=== PATIENT | female | born 1980 | race Caucasian/White ===

== ENCOUNTER 2017-08-08 23:04 | Emergency (ER) | payer OTHER, SELFPAY ==
[2017-08-08 23:04] VITALS: BP 140/77; PULSE 93; RESP 16; TEMP 36.6; O2SAT 99; BMI 30.9
--- NOTE | 2017-08-08 23:56 | ED.DCSUM_ITS ---
- ER Visit Summary Date of Service: 08/08/17 Chief Complaint: Left lower leg pain History of Present Illness: The patient is a 37 F nontraumatic left lower leg pain progress over the past week. No significant swelling. No chest pains or shortness of breath. No history of PE or DVT. Denies any recent long trips or plane rides. States she does ride in a car for 2 hours. No history of clotting disorders. No tobacco history. However she is on estrogen therapy for control. Saw the urgent care for 30 today, sent here for rule out DVT. Been using ibuprofen. Physical Examination: General: Alert and oriented ?3, no acute distress HEENT: Normocephalic, atraumatic. Moist mucosa membranes Neck: supple, nontender. Cardiovascular: Regular rate and rhythm, no murmurs Respiratory: Normal breath sounds, symmetric, no distress Abdomen: Soft, nontender, nondistended Extremities: Left lower extremity: Mild calf pain. No deformities. No gross asymmetry noted of the extremities. There is 1+ pedal pulse in the left, 2+ pedal pulse on the right. Warm distal extremities. No cyanosis. Neuro: no focal neurological deficits. Test Results: [] Emergency Department Course and Treatment: Patient calf pain, she is on estrogen therapy. No chest pains or shortness of breath. Currently at this time there is no ultrasound available for rule out DVT. With her risk factor, discussed Lovenox treatment return in the morning for official ultrasound. Patient understands and agrees with plan. 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 She will like the PCP in the area, she is given on-call with Dr. Lowell Dickson. Treatment Plan: [] Disposition: Discharge Impression: Left lower extremity pain rule out DVT This note was generated with [employer] dictation software. It may contain incorrect words, spelling, and punctuation that were not noted in review of the chart prior to signing ED Disposition - Plan for ED Patient: Disposition: Home or Assisted Living Chief Complaint: Lower Extremity Injury Diagnosis: Pain of left lower extremity Referrals: [facility] Doctor,Out of [Primary Care Provider] - Lowell Dickson DO [STAFF PHYSICIAN] - 3-5 Days Additional Instructions: Left lower extremity pain. Status post Lovenox. Call or return in the morning for an official ultrasound to rule out deep vein thrombosis of your leg.
[2017-08-08] MEDS: Enoxaparin 100 MG/ML Syringe SC (23:57)
--- OUTSIDE RECORDS SUMMARY | 2017-08-08 23:58 | XMS RPT_ITS | Clinical Summary ---
:1980 Author Organization [facility] Address [address] [place] [address] Phone Care Team Providers Name Role Phone Nuvia Davis LPN Unavailable Conditions or Problems Problem Name Problem Onset Status Entry Provider Comment Standard Annotate Code Date Date Description Sinusitis [id number] Active Nuvia Stack Sinusitis (SNOMED / Susan ANAYAN CT) Strain of S66.911A Active Augusto Quinteros Strain of unspecified (ICD-10-CM / [place] unspecified muscle, fascia ) muscle, and tendon at fascia and wrist and hand tendon at level, right wrist and hand, initial hand level, encounter right hand, initial encounter Strain of S56.911A Active Augusto M Strain of unspecified (ICD-10-CM / [place] unspecified muscles, ) muscles, fascia and fascia and tendons at tendons at forearm level, forearm right arm, level, right initial arm, initial encounter encounter Contusion of S60.211A Active Augusto Quinteros Contusion of right wrist, (ICD-10-CM / [place] right wrist, initial ) initial encounter encounter Contusion of S50.01xA Active Augusto M Contusion of right elbow, (ICD-10-CM / [place] right elbow, initial ) initial encounter encounter Contusion of S60.221A Active Augusto M Contusion of right hand, (ICD-10-CM / [place] right hand, initial ) initial encounter encounter Medications Medication Instructions Start Stop Generic Name NDC Provider Date Date AMOXICILLIN-POT Take 1 tab every / AMOXICILLIN-PO [id number] Vivek D CLAVULANATE 12 hours 5 25 T CLAVULANATE Ty ADEN 875-125 MG TABS Medications Administered No information available. Allergies, Adverse Reactions, Alerts Observed no known allergies at Results Date Name Value Unit Range Flag Description Office Visit: UC: sinus/ear infection MEDS REVIEW Done Documentation of current medications (procedure) FALLRSKASSES No Fall risk assessment ORALTOBACUSE Never Tobacco smoking status NHIS SMOK STATUS Never smoker Tobacco use [facility] Plan of Care Type Date Detail Pending order X-Ray, Hand Pending order X-Ray, Wrist Pending order X-Ray, Elbow Pending order X-Ray, Hand Pending order X-Ray, Elbow Pending order X-Ray, Elbow Patient education SINUSITIS Procedures No information available. Vital Signs Date Name Value Unit Description BMI (Body Mass Index) 29.18 kg/m2 Body Mass Index [Ratio] Body Temperature 98.3 [degF] temperature E&M BP Diastolic 78 mm[Hg] blood pressure, diastolic - 8462-4 BP Systolic 124 mm[Hg] blood pressure, systolic - 8480-6 Heart Rate 106 /min pulse rate E&M - 8867-4 Height 64 [in_us] height E&M - 8302-2 Respiratory Rate 14 /min respiratory rate E&M - 9279-1 Weight Measured 170 [lb_av] weight E&M - 3141-9
--- OUTSIDE RECORDS SUMMARY | 2017-08-08 23:58 | XMS RPT_ITS ---
:1980 Author Organization OHIP Care Team Providers Name Role Phone [facility] Attending Unavailable Augusto Monsivais Attending Unavailable DOCTOR, OUT OF TOWN Referring Unavailable Thomas House Attending Unavailable PROBLEMS PROBLEMS DATE TYPE CONDITION / CODE ATTENDING STATUS SOURCE 12/06/2016 Unknown ENCOUNTER FOR [facility] Active [place] SCREENING FOR [facility] NEOPLASM OF Repository CERVIX / Z12.4(ICD-10) PROCEDURES PROCEDURES No Procedure Records FoundRESULTS RESULTS EMERGENCY DEPARTMENT Observed: 08/08/2017 Status: F Source: [place] SUMMARY 11:56 PM [facility] REPOSITORY [facility] [id number] [place], [place] [address]Nvdxdcayz Department Xpsammw42/21/18 2352MR#: [id number] Acct: [id number]: LOLIS RATLIFF Rep #: [id number]: 1980 37 From: Thomas House DOPCP: OUT OF TOWN DOCTOR Status: REG ER- ER Visit SummaryDate of Service: 08/08/17Chief Complaint: Left lower leg painHistory of Present Illness: The patient is a 37 F nontraumatic left lower leg pain progressover the past week. No significant swelling. No chest pains or shortness of breath. Nohistory of PE or DVT. Denies any recent long trips or plane rides. States she [place] in [place] 2 [place]. No history of clotting disorders. No tobacco history. However she is onestrogen therapy for control. Saw the urgent care for 30 today, sent here for rule outDVT. Been using ibuprofen.Physical Examination: General: Alert and oriented 3, no acute distressHEENT: Normocephalic, atraumatic. Moist mucosa membranesNeck: supple, nontender.Cardiovascular: Regular rate and rhythm, no murmursRespiratory: Normal breath sounds, symmetric, no distressAbdomen: Soft, nontender, nondistendedExtremities: Left lower extremity: Mild calf pain. No deformities. No gross asymmetry notedof the extremities. There is 1+ pedal pulse in the left, 2+ pedal pulse on the right. Warmdistal extremities. No cyanosis.Neuro: no focal neurological deficits.Test Results: []Emergency Department Course and Treatment: Patient calf pain, she is on estrogen therapy. Nochest pains or shortness of breath. Currently at this time there is no ultrasound availablefor rule out DVT. With her risk factor, discussed Lovenox treatment return in the morning forofficial ultrasound. Patient understands and agrees with plan. 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 She will like the PCP in the area, she is givenon-call with Dr. Lowell Dickson.Treatment Plan: []Disposition: DischargeImpression: Left lower extremity pain rule out DVTThis note was generated with [employer] dictation software. It may contain incorrect words,spelling, and punctuation that were not noted in review of the chart prior to signingED Disposition- Plan for ED Patient:Disposition: Home or Assisted LivingChief Complaint: Lower Extremity InjuryDiagnosis:Pain of left lower extremityReferrals:[facility] Doctor,Out of [Primary Care Provider] -Lowell Dickson DO [STAFF PHYSICIAN] - 3-5 DaysAdditional Instructions:Left lower extremity pain. Status post Lovenox. Call or return in the morning for an officialultrasound to rule out deep vein thrombosis of your leg.What to do if you have ProblemsFor any increased pain, shortness of breath, bleeding , nausea or vomiting, chest pain, or anyunexpected problems, contact your Primary Care Provider. Call [facility] ([phone])or report to the closest Emergency Room.Call 911 if necessary.08/08/17 2356 <Electronically signed by Thomas Salazar>Date Thomas House DOCosigner Signature (If Indicated): Date ___CC: OUT OF TOWN DOCTOR URGENT CARE VISIT Observed: 08/08/2017 Status: F Source: [place] REPORT 5:09 PM [facility] REPOSITORY Now [address] [id number] VISITDate of Service: 08/08/17MR#: [id number] Acct: [id number]: LOLIS RATLIFF Rep #: [id number]: 1980 Provider: Augusto Thornton/Sex: 37/F [facility]: SignedIntakeVital Signs08/08/17 Height 5 ft 5 in08/08/17 Weight: 180 lb08/08/17 Body Mass Index (BMI) 29.906 Blood Pressure 126/84IntakeVisit Reasons: Swollen Left FootChief Complaint: Left lower extremity swellingInterpreter Required: NoIs patient in pain?: NoAllergiesNo Known Allergies Allergy (Unverified 08/08/17 16:30)MedicationsNK [NK] 08/08/17 [History Confirmed 08/08/17]PFSHMedical History history of ankle surgery (Acute)history of wrist surgery (Acute)Social HistorySmoking Status: Never smokeralcohol intake: neverHPIHPIChief Complaint: Left lower extremity swellingDetails: LOLIS RATLIFF, is a 37 F who presents to the office today for initial evaluationapproximately 2-3 month history of waxing and waning swelling of the left lower extremity.Patient notes having had previous surgery performed including debridement of the joints in herleft ankle several years ago. Patient has noted over the course of the last several monthswhen her left lower extremity is dependent or she performs prolonged ambulation she developsdependent swelling in her left lower extremity. She notes resting elevating lower extremityseems to assist somewhat, noting she has trace to absent swelling at this time. Patient isconcerned because of the waxing and waning of the symptoms. She notes no history ofhypercoagulable states or DVT/PE. She notes no other associated symptoms and no otheralleviating or aggravating factors.ROSConstConstitutional: No excessive sweating, abnormal sleep pattern, chills, fever(s), night sweatsor body acheEyesEyes: No change in visionENTENT: No abnormal hearing, ear pain, ear discharge, ear pressure or hearing lossRespRespiratory: No cough, chest congestion or shortness of breathCardioCardiology: No excessive sweating, chest pain at rest, chest pain with exertion, shortness ofbreath, dyspnea on exertion, irregular heart rhythm, generalized swelling, leg pain withexertion, lightheadedness or orthopneaGastroGI: No abdominal pain, change in stool character or change in bowel habitsMuscMusculoskeletal: No joint pain, back pain or limited range of motionSkinSkin: No change in hair, sores, rash or woundsNeuroNeurology: No abnormal hearing, abnormal speech or abnormal movementsPsychPsychiatric: No abnormal sleep patternEndoEndocrine: No excessive sweating, change in body appearance, cold intolerance or heatintoleranceAller/ImmAllergy/Immunologic: No food intoleranceHema/LympHematologic/Lymphatic: No easy bruisingExamConstGeneral: cooperative, healthy appearing, no acute distress, comfortableNutritional Appearance: average body habitus, obeseOrientation: alert, awake, oriented x4SUKRMLbvi: normal to inspectionEars: hearing grossly normal bilaterallyNose: external nose normalEyesGeneral: appearance normal, both eyes and all related structuresNeckNeck: normal visual inspection, full ROM, no lymphadenopathy, no meningeal signs, suppleNeck mass: NoThyroid: thyroid normalLymphatic: no lymphadenopathy notedChestChest palpation AND inspection: normal inspection of the chestRespEffort AND Inspection: normal respiratory effort, able to speak in complete sentences , symmetricchest movementAuscultation: Bilateral: Clear to AuscultationCardioPalpation: normal PMIRate: regular rateRhythm: regular rhythmHeart Sounds: S1 normal, S2 normal, no gallops, no murmurs, no rubsPulses: dorsalis pedis pulses present, posterior tibial pulses present, other (Negative Homansbilateral extremities, no BLE edema appreciated)GIInspection: normal to inspectionPalpation: soft, no hepatosplenomegalySkinGeneral: no rashes or lesions notedNeuroGeneral: alert, awake, oriented x3, gait normalCognition: normal cognitionSpeech: speech normalGait: normal gaitMotor: muscle tone normal throughoutSensory Exam: no sensory deficits notedExtremGeneral: normal to inspection, full ROM, normal capillary refill, no joint enlargement, nopedal edema, normal gait, calf tenderness (trace) on the left, no calf tenderness (right)PsychAppearance: grossly normalMental Status: mental status grossly normalMood: congruent moodAffect: normal affectSpeech and Movement: speech and movement normalAttitude: cooperativeThought Process: normalThought Content: normalJudgment: judgment goodAssessment AND PlanProblems1. Edema of left lower extremity R60.0Plan- by historyContinue rest and elevation of left lower extremity as instructed today.Follow-up with PCP first available appointment for further evaluation, or report to ED soonershould recurring left lower extremity discomfort in her swelling occurred.Patient states acknowledging understanding all the above.CodingLevel of Care CodeOff vis,new,level 3DiagnosesEdema of left lower extremity R60.006 1709 <Electronically signed by Augusto ADEN>Date Augusto Monsivais PACosigner Signature: Date (if applicable)CC: PROGRESS Observed: 02/13/2017 Status: COMPLETED Source: [place] 7:51 PM [facility] RE[facility] HNO ID: [id number]: Nicole (Ruling Machine Set Up Operator) Nunu: (none)Author Type: Nurse PractitionerType: Progress NotesFiled: 02/13/2017 9: 32 PMNote Text:HPIHPI Lolis Ratliff is a 36 year old female who presents today for CC ofcough, sinus pressure, ear pressure. This started 1 month ago. Has triedotc medications without relief. Symptoms are worsened by nothing specific. Risk factors sick exposures at home. Denies possibility of being. nonsmoker.Review of SystemsConstitutional: Positive for chills. Negative for fever and weight loss.HENT: Positive for congestion and sore throat. Negative for ear pain andnosebleeds.Respiratory: Positive for cough. Negative for shortness of breath andwheezing.Musculoskeletal: Negative for neck pain.PAST MEDICAL HISTORYDiagnosis Date- Seasonal allergiesPAST SURGICAL HISTORYProcedure Laterality Date- ANKLE SURGERY HX Left- CHOLECYSTECTOMY- PAST SURGICAL HISTORY OF Bilateral DeQervains releaseALLERGIES Review of patient's allergies indicates no known allergies.MEDICATIONSEthinyl Estradiol-Norelgestrom 150-35 mcg/24 hr Apply 1 Patch as directedonce each week.No family history on file.Social HistorySubstance Use Topics- Smoking status: Never Smoker- Smokeless tobacco: Never Used- Alcohol use Not on fileBlood pressure 120/82, pulse 60, temperature 37.7 ?C (99.9 ?F),temperature source Tympanic, weight 80.6 kg (177 lb 9.6 oz), SpO2 98 %.Physical ExamConstitutional : She is oriented to person, place, and time andwell-developed, well-nourished, and in no distress. Non-toxic appearance.She does not have a sickly appearance. No distress.HENT:Head: Normocephalic and atraumatic.Right Ear: Hearing, external ear and ear canal normal. Tympanic membraneis bulging. Tympanic membrane is not erythematous.Left Ear: Hearing, tympanic membrane, external ear and ear canal normal.Nose: Right sinus exhibits frontal sinus tenderness. Left sinus exhibitsfrontal sinus tenderness.Mouth/Throat: Uvula is midline and mucous membranes are normal. Posteriororopharyngeal erythema present. No oropharyngeal exudate, posteriororopharyngeal edema or tonsillar abscesses.Eyes: Conjunctivae, EOM and lids are normal. Pupils are equal, round, andreactive to light. Lids are everted and swept, no foreign bodies found.Right eye exhibits no discharge. Left eye exhibits no discharge. Noscleral icterus.Neck: Trachea normal and normal range of motion. Neck supple.Cardiovascular: Normal rate, regular rhythm and normal heart sounds.Pulmonary/Chest: Effort normal and breath sounds normal.Lymphadenopathy : She has no cervical adenopathy.Neurological: She is alert and oriented to person, place, and time.Skin: No rash noted. She is not diaphoretic.ASSESSMENT/PLAN:1. Sinobronchitis - ICD9: 473.9, 490, ICD10: J32.9, J40- Will begin treatment with Augmentin 875 mg PO BID for 10 days- Supportive care with plenty of fluids, rest, and analgesia prn.- Follow up in one week if symptoms persist or worsen.- AMOXICILLIN 875 MG-POTASSIUM CLAVULANATE 125 MG TABLET- PREDNISONE 20 MG TABLETPrescription instructions reviewed with patient as applicable. Patientadvised if symptoms do not improve or if symptoms worsen sooner, tocontact the office for further evaluation by their primary care physician. Potential red flag symptoms discussed with the patient. Reviewedappropriate action plan to take if red flag symptoms occur. Patientagreeable to treatment plan.Nicole Valle CNP CNOV Observed: 02/13/2017 Status: COMPLETED Source: [place] 7:[address] [facility] REPOSITORY Office Visit (WSTR) ---------LOLIS RATLIFF ([id number]) 1980 FDate Time Provider Rtlyacccay50/27/17 7:30 PM NICOLE VALLE (ALEJANDRA) UCWSTR During your visit today, we recorded the following information about you: Temperature Pulse Blood pressure Weight 99.9 degrees 60/minute 120/82 80.6 kgNicole ALEJANDRA Valle 02/13/2017 9:32 PM AddendumHPIHPI Lolis Ratliff is a 36 year old female who presents today for CC of cough,sinus pressure, ear pressure. This started 1 month ago. Has tried otcmedications without relief. Symptoms are worsened by nothing specific. Riskfactors sick exposures at home. Denies possibility of being .nonsmoker.Review of SystemsConstitutional: Positive for chills. Negative for fever and weight loss.HENT: Positive for congestion and sore throat. Negative for ear pain andnosebleeds.Respiratory: Positive for cough. Negative for shortness of breath and wheezing.Musculoskeletal: Negative for neck pain.PAST MEDICAL HISTORYDiagnosis Date- Seasonal allergiesPAST SURGICAL HISTORYProcedure Laterality Date- ANKLE SURGERY HX Left - CHOLECYSTECTOMY- PAST SURGICAL HISTORY OF Bilateral DeQervains releaseALLERGIES Review of patient's allergies indicates no known allergies.MEDICATIONSEthinyl Estradiol-Norelgestrom 150-35 mcg/24 hr Apply 1 Patch as directed onceeach week.No family history on file.Social HistorySubstance Use Topics- Smoking status: Never Smoker- Smokeless tobacco: Never Used- Alcohol use Not on fileBlood pressure 120/82, pulse 60, temperature 37.7 ?C (99.9 ?F), temperaturesource Tympanic, weight 80.6 kg (177 lb 9.6 oz), SpO2 98 %.Physical ExamConstitutional: She is oriented to person, place, and time and well-developed,well-nourished, and in no distress. Non-toxic appearance. She does not have asickly appearance. No distress.HENT:Head: Normocephalic and atraumatic.Right Ear: Hearing, external ear and ear canal normal. Tympanic membrane isbulging. Tympanic membrane is not erythematous.Left Ear: Hearing, tympanic membrane, external ear and ear canal normal.Nose: Right sinus exhibits frontal sinus tenderness. Left sinus exhibitsfrontal sinus tenderness.Mouth/Throat: Uvula is midline and mucous membranes are normal. Posteriororopharyngeal erythema present. No oropharyngeal exudate, posteriororopharyngeal edema or tonsillar abscesses.Eyes: Conjunctivae, EOM and lids are normal. Pupils are equal, round, andreactive to light. Lids are everted and swept, no foreign bodies found. Righteye exhibits no discharge. Left eye exhibits no discharge. No scleral icterus.Neck: Trachea normal and normal range of motion. Neck supple.Cardiovascular: Normal rate, regular rhythm and normal heart sounds.Pulmonary/Chest: Effort normal and breath sounds normal.Lymphadenopathy: She has no cervical adenopathy.Neurological: She is alert and oriented to person, place, and time.Skin: No rash noted. She is not diaphoretic.ASSESSMENT/PLAN:1. Sinobronchitis - ICD9: 473.9, 490, ICD10: J32.9, J40- Will begin treatment with Augmentin 875 mg PO BID for 10 days- Supportive care with plenty of fluids, rest, and analgesia prn.- Follow up in one week if symptoms persist or worsen. - AMOXICILLIN 875 MG-POTASSIUM CLAVULANATE 125 MG TABLET- PREDNISONE 20 MG TABLETPrescription instructions reviewed with patient as applicable. Patient advisedif symptoms do not improve or if symptoms worsen sooner, to contact the officefor further evaluation by their primary care physician. Potential red flagsymptoms discussed with the patient. Reviewed appropriate action plan to takeif red flag symptoms occur. Patient agreeable to treatment plan.Jareth Ortiz CNP 02/13/2017 8:15 PM SignedACUTE BRONCHITIS:You have acute bronchitis. This means the airway passages in your lungs areinflamed. Bronchitis may be caused by viruses or bacteria. Inhaling cigarettesmoke will always make it worse. Exposure to irritating chemicals or secondhand smoke as well as allergies can contribute to bronchitis. Repeat episodesof bronchitis may cause lifelong lung problems.Acute bronchitis is usually treated with rest, fluids, cough medicine, andpossibly antibiotics or inhaled medicine to open up the small airways. It isvery important that you avoid smoke and drink increased amounts of fluids. Acool air vaporizer can help thin bronchial secretions. This makes it easier tocough and clear your chest. If you are a cigarette smoker, consider usingnicotine gum or skin patches to help you withdraw.Recovery from bronchitis is often slow, but you should start feeling betterafter 2-3 days of treatment. Please call your doctor or return here if youhave any of the following symptoms: - Increased fever, chills, or chest pain. - Severe shortness of breath or bloody sputum. - Do not improve after 3 days of proper treatment.Referring Provider: SELF [200]Allergies As of Date: 02/13/2017(No Known Allergies)Date Reviewed: 2016Reviewed by: Nicole ([facility]) - Fully AssessedReason for Visit: cough, congestion, sore throat,bilateral ear pain chills [Other] Cmt: has had URI sympto- ms for about 1 month and last few days feels worsePrimary Visit Diagnosis:Sinobronchitis [J32.9, J40]Order(s):amoxicillin- clavulanic acid (AUGMENTIN) 875-125 mg per tabletTake 1 tablet by mouth twice daily for 10 days.Disp: 20 tabletRfl: 0 predniSONE (DELTASONE) 20 mg tabletTake 2 tablets by mouth once daily for 5 days.Disp: 10 tabletRfl: 0Prescriptions as of 02/13/2017 Sig: NORELGESTROMIN 150 MCG-E.ESTR* Apply 1 Patch as directed onc* AMOXICILLIN 875 MG-POTASSIUM * Take 1 tablet by mouth twice * PREDNISONE 20 MG TABLET Take 2 tablets by mouth once *Problem List As Of Date: 02/13/2017(None) Other instructions from your clinician: ACUTE BRONCHITIS : You have acute bronchitis. This means the airway passages in your lungs are inflamed. Bronchitis may be caused by viruses or bacteria. Inhaling cigarette smoke will always make it worse. Exposure to irritating chemicals or second hand smoke as well as allergies can contribute to bronchitis. Repeat episodes of bronchitis may cause lifelong lung problems. Acute bronchitis is usually treated with rest, fluids, cough medicine, and possibly antibiotics or inhaled medicine to open up the small airways. It is very important that you avoid smoke and drink increased amounts of fluids. A cool air vaporizer can help thin bronchial secretions. This makes it easier to cough and clear your chest. If you are a cigarette smoker, consider using nicotine gum or skin patches to help you withdraw. Recovery from bronchitis is often slow, but you should start feeling better after 2-3 days of treatment. Please call your doctor or return here if you have any of the following symptoms: - Increased fever, chills, or chest pain. - Severe shortness of breath or bloody sputum. - Do not improve after 3 days of proper treatment.Prescriptions ordered this encounter Disp Refills Start End AMOXICILLIN 875 MG-POTASSIUM CLAVULA* 20 t* 0 02/13/2017 02/23/2017 Route: ORAL Sig: Take 1 tablet by mouth twice daily for 10 days. PREDNISONE 20 MG TABLET 10 t* 0 02/13/2017 02/18/2017 Route: ORAL Sig: Take 2 tablets by mouth once daily for 5 days. 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 of containers..01 ThinPrep Vial TYPE CODE TESTS RESULT OUT OF RANGE REFERENCE UNITS LAB L7400.0800 Normal . DIAGN Comment Result Comment: NEGATIVE FOR INTRAEPITHELIAL LESION AND MALIGNANCY.CELLULAR CHANGES ASSOCIATED WITH INFLAMMATION ARE PRESENT. LAB L7400.0900 Normal . ADEQ Comment Result Comment: Satisfactory for evaluation. Endocervical and/or squamous metaplasticcells (endocervical component) are present. LAB L7400.1400 Normal . PERFORM Comment Result Comment: Frances Khalil, [employer]aked Goods Stock Clerk ( ASCP) LAB L7400.2575 Normal . TEST Comment METHOD Result Comment: This liquid based ThinPrep(R) pap test was screened withthe use of an image guided system. LAB L7400.2600 Normal . COMM . LAB L7400.2700 Normal . PAPSMR Comment Result Comment: The Pap smear is a screening test designed to aid in thedetection of premalignant and malignant conditions of theuterine cervix. It is not a diagnostic procedure andshould not be used as the sole means of detecting cervicalcancer. Both false-positive and false-negative reports dooccur. LAB L7400.2800 Normal . HPV Comment RFLX Result Comment: The HPV DNA reflex criteria were not met with this specimenresult therefore, no HPV testing was performed.Performed at: [address] [id number] Director: Nichol Patel MD, Phone: [phone] Performed By: #### L7400.0350 ####[facility] (refer to report for specific site)refer to report for address and phone number ALLERGIES ALLERGIES DATE TYPE / CODE NAME / CODE REACTION SEVERITY SOURCE 08/08/2017 Drug No Known Unknown [facility] Allergy/416 Allergies/H51666 Hospital 478561(SNOM 0388(RXNORM) Repository ED CT) Drug NO KNOWN [facility] Class/43824 ALLERGIES Main [place] 1003(SNOMED Repository CT) ENCOUNTERS ENCOUNTERS ADMIT/DISCHARGE ACCOUNT ADMITTING ENCOUNTER LOCATION SOURCE NUMBER CLASS 08/08/2017 [id number] Emergency [facility] ing:ED Repository 08/08/2017/08/09/19 [id number] [facility] [address] [facility] Repository 02/13/2017/02/14/20 [id number] Ambulatory [address] Repository 11/30/2016 [id number] Ambulatory [facility] ing:LABSPEC Repository PAYERS PAYERS ENCOUNTER GUARANTOR PAYER SUBSCRIBER SOURCE 08/08/2017 LOLIS Davis Primary LOLIS Davis [place] [id number] Insurance:HEALTH PLAN CALDRONEDOB: [facility] [id number] Number: Repository [id number]: [phone] [id number] [phone] (HP) Date: [place], [place] [address]DA: 08/08/2017 [facility]:SELF PAY [facility] Number: Effective Repository Date:2017-08-08 08/08/2017 LOLIS Davis Primary LOLIS Davis [place] [id number] Insurance:HEALTH PLAN CALDRONEDOB: [facility] [id number] Mercy HospitalPolicy Number: Repository [id number]: 330 [id number] [phone] () Date: NISHA GARCIA [address]RU: 08/08/2017 Secondary NOT GIVENUNK [place] Insurance:SELF PAY [facility] Number: Effective Repository Date:2017-08-08 11/30/2016 LOLIS [id number] Primary LOLIS Ryan ROBBINS Insurance:HEALTH PLAN CALDRONEDOB: [facility] [id number] 316[address]Zkl: 330 VALLEYPolicy Number: Repository [phone] () [id number] Date:[address] [place] [id number]:
== END 2017-08-09 00:05 | disposition home or self-care (01) ==
PROVIDERS: Emergency Provider Emergency Medicine
DX: M79.605 Pain in left leg (principal); Z79.890 Hormone replacement therapy
CPT/HCPCS: 99282

== ENCOUNTER → 2017-08-09 11:05 | Outpatient (CLI) | payer OTHER, SELFPAY ==
--- NOTE | 2017-08-09 11:08 | VDLE_ITS ---
Reason For Study: LEG PAIN AND SWELLING RIGHT LEFT CFV is compressible, spontaneous, phasic, GSV is normal. competent and demonstrates normal CFV is compressible, spontaneous, phasic, augmentation. competent, and demonstrates normal Procedure augmentation. Exam performed in department. FV is compressible, spontaneous, phasic, competent and demonstrates normal augmentation. POP V is compressible, spontaneous, phasic, competent and demonstrates normal augmentation. T/P Trunk is compressible. PTV is compressible. LT PerV is compressible. Interpretation Summary Deep veins of the left lower extremity are patent and compressible segmentally. There is no evidence of left lower extremity deep vein thrombosis. Valvular competence appears intact within the proximal deep venous system on the left . The left greater saphenous vein appears patent and compressible segmentally. Ordering Physician: Thomas House Referring Physician: Lowell Dickson Performed By: Lindsay Mascorro RVT
--- OUTSIDE RECORDS SUMMARY | 2017-08-09 13:40 | XMS RPT_ITS ---
:1980 Author Organization OHIP Care Team Providers Name Role Phone [facility] Attending Unavailable Augusto Monsivais Attending Unavailable DOCTOR, OUT OF TOWN Referring Unavailable Thomas House Attending Unavailable FRANCES KATZ Primary Care Unavailable Thomas House Attending Unavailable Thomas House Referring Unavailable FRANCES KATZ Primary Care Unavailable PROBLEMS PROBLEMS DATE TYPE CONDITION / CODE ATTENDING STATUS SOURCE 12/06/2016 Unknown ENCOUNTER FOR [facility] Active Emily [facility] NEOPLASM OF Repository CERVIX / Z12.4(ICD-10) PROCEDURES PROCEDURES No Procedure Records FoundRESULTS RESULTS EMERGENCY DEPARTMENT Observed: 08/08/2017 Status: F Source: EMILY SUMMARY 11:56 PM [facility] [id number] [place] [address]Fbkxgrnuk Department Nrihhri62/21/18 2352#: [id number] Acct: [id number]: LOLIS RATLIFF Rep #: [id number]: 1980 37 From: Thomas SinghCP: OUT OF TOWN DOCTOR Status: REG ER- [...] rule out DVTThis note was generated with CritiSenseation software. It may contain incorrect words,spelling, and punctuation that were not noted in review of the chart prior to signingED Disposition- Plan for ED Patient:Disposition: Home or Assisted LivingChief Complaint: Lower Extremity InjuryDiagnosis:Pain of left lower extremityReferrals:[facility] Doctor,Out of [Primary Care Provider] -Lowell Dickson [...] your Primary Care Provider. Call [facility] ([phone])or report to the closest Emergency Room.Call 911 if necessary.08/08/17 2356 <Electronically signed by Thomas Salazar>Date Thomas Neilosigner Signature (If Indicated): Date ___CC: OUT OF TOWN DOCTOR URGENT CARE VISIT Observed: 08/08/2017 Status: F Source: [place]ILY REPORT 5:09 PM [facility] REPOSITORY Now [address] [phone] VISITDate of Service: 08/08/17MR#: [id number] Acct: [id number]: LOLIS RATLIFF Rep #: [id number]: 1980 Provider: Augusto Thornton/Sex: 37/F Location: [facility].NOWStatus: SignedIntakeVital Signs08/08/17 Height 5 ft 5 in08/08/17 [...] average body habitus, obeseOrientation: alert, awake, oriented [id number]: normal to inspectionEars: hearing grossly normal bilaterallyNose: [...] extremity R60.006 1709 <Electronically signed by Augusto Monsivais PA>Date Augusto Monsivais PACosigner Signature: Date (if applicable)CC: PROGRESS Observed: 02/13/2017 Status: COMPLETED Source: [place] 7:51 PM [facility] REPOSITORY HNO ID: [id number]: Nicole ([facility]) Nunu: (none)Author Type: Nurse PractitionerType: Progress NotesFiled: [...] CNP CNOV Observed: 02/13/2017 Status: COMPLETED Source: ELON 7:30 PM [facility] REPOSITORY Office Visit (WSTR) ---------LOLIS RATLIFF ([id number]) 1980 FDate Time Provider Fwpqkoezqf14/27/17 7:30 PM NICOLE VALLE (ALEJANDRA) [facility] During your visit today, we recorded the following information about you: Temperature Pulse Blood pressure Weight 99.9 degrees 60/minute 120/82 80.6 kgNicole Valle CNP 02/13/2017 9:32 PM AddendumHPIHPI Lolis Ratliff is [...] 02/13/2017(No Known Allergies)Date Reviewed: 2016Reviewed by: Nicole Valle - Fully AssessedReason for Visit: cough, congestion, [...] W/RFX HRHPV Collected: 11/30/2016 Status: F Source: [place] 9:30 AM [facility] REPOSITORY Order Comment: CYTOLOGY INFORMATION:- CLINICAL INFORMATION : ORTHO EVRA- DATE LMP/MENOPAUSE: LMP/ 11/14- COLLECTION VIAL: 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 of containers..01 ThinPrep Vial TYPE [...] . PERFORM Comment Result Comment: Frances Khalil, Plasterer Maintenance ( ASC[facility]) LAB L7400.2575 Normal . TEST [...] therefore, no HPV testing was performed.Performed at: [facility] [id number] Director: Nichol Patel MD, Phone: [phone] Performed By: #### [id number] ####[facility] (refer to report for specific site)refer to report for address and phone number ALLERGIES ALLERGIES DATE TYPE / CODE NAME / CODE REACTION SEVERITY SOURCE 08/08/2017 Drug No Known Unknown [facility] Allergy/416 Allergies/H12557 Hospital 185850(SNOM 0388(RXNORM) Repository ED CT) Drug NO KNOWN [facility] Class/29888 ALLERGIES [place] 1003(SNOMED Repository CT) ENCOUNTERS ENCOUNTERS ADMIT/DISCHARGE ACCOUNT ADMITTING ENCOUNTER LOCATION SOURCE NUMBER CLASS 08/09/2017 [id number] Ambulatory [facility] ing:[facility] Repository 08/08/2017/08/10/19 [id number] Emergency [address] ing:ED Repository 08/08/2017/08/09/19 [id number] Ambulatory BMSBuilding:B [place] [address] Repository 02/13/2017/02/14/20 [id number] Ambulatory [address] Repository 11/30/2016 [id number] Ambulatory [facility] ing:[facility] Repository PAYERS PAYERS ENCOUNTER GUARANTOR PAYER SUBSCRIBER SOURCE 08/09/2017 LOLIS Davis Primary LOLIS Lehmanoster [id number] Insurance:HEALTH PLAN CALDRONEDOB: [id number]: Repository [id number]: (330) [id number] [phone] (HP) Date: [place], [place] [address]WU: 08/09/2017 Secondary NOT GIVENUNK Emily Insurance:SELF PAY [facility] Number: Effective Repository Date:2017-08-09 08/08/2017 LOLIS K Primary LOLIS K [place] [id number] Insurance:HEALTH PLAN CALDRONEDOB: Community [facility] [id number]: Repository [id number]: (330) [id number] [phone] () Date: [place], [place] [address]DA: 08/08/2017 Secondary NOT GIVENUNK [place] Insurance:SELF PAY [facility] Number: Effective Repository Date:2017-08-08 08/08/2017 LOLIS K Primary LOLIS K [place] [id number] Insurance:HEALTH PLAN CALDRONEDOB: [facility] [id number]: Repository [id number]: (330) [id number] [phone] () Date: [place], [place] [address]GX: 08/08/2017 Secondary NOT GIVENUNK [place] Insurance:SELF PAY [facility] Number: Effective Repository Date:2017-08-08 11/30/2016 LOLIS [id number] Primary LOLIS K [place] Insurance:HEALTH PLAN CALDRONEDOB: [facility] [id number] [address]Vxa: (330) VALLEYPolicy Number: Repository [phone] [id number] Date:[address] [place] [address]RF:
== END ==
PROVIDERS: Visit Provider Emergency Medicine
DX: M79.605 Pain in left leg (principal)
CPT/HCPCS: 93971

== ENCOUNTER → 2018-03-03 14:58 | Outpatient (CLI) | payer OTHER, SELFPAY ==
[2018-03-03 19:19] LABS: Chlamydia Trachomatis by PCR Negative (Negative); Neisserai gonorrhoeae by PCR Negative (Negative); Probe Check PASS; Sample Adequacy Control PASS; Specimen Processing Control PASS
[2018-03-06 09:42] LABS: HPV Reflexed? NOT INDICATED
== END ==
PROVIDERS: Visit Provider Obstetrics & Gynecology
DX: Z12.4 Encounter for screening for malignant neoplasm of cervix (principal); Z11.3 Encounter for screening for infections with a predominantly sexual mode of transmission
CPT/HCPCS: 87491; 87591; 88175; G0145

== ENCOUNTER → 2018-03-17 10:26 | Outpatient (CLI) | payer OTHER, SELFPAY ==
[2018-03-17 13:42] LABS: Color, Urine Yellow (Yellow); Glucose, Dipstick Normal (Normal); Ketone-Dipstick Negative (Negative); Leukocyte Esterase-Dipstick Negative /ul (Negative); Nitrite-Dipstick Negative (Negative); Occult Blood-Urine Negative /ul (Negative); Protein-Dipstick Negative (Negative); Specific Gravity, Urine 1.015 (1.002-1.030); Urine Bilirubin Dipstick Negative (Negative); Urine Clarity Sl. Cloudy (Clear); Urine Urobilinogen Normal (Normal)
[2018-03-17 13:56] LABS: Absolute Lymphocyte Count 1.56 X10^3/ul (0.83-4.51); Absolute Neutrophil Count 6.9 X10^3/uL (2.0-7.7); Basophil# 0.01 X10^3/uL; Basophil% 0.1 % (0-1); Eosinophil# 0.01 X10^3/uL; Eosinophils% 0.1 % (0-5); Hematocrit 39.4 % (37-47); Hemoglobin 12.7 g/dl (12.0-15.0); Lymphocyte # 1.56 X10^3/ul (4.0); Lymphocyte % 17.2 % (19-41); Mean Corp Hgb Conc 32.2 g/gl (32-36); Mean Platelet Vol. 11.4 fl (6.2-12.0); Monocyte# 0.62 X10^3/uL; Monocyte% 6.8 % (0-10); Neutrophil # 6.85 X10^3/uL (2.7-7.7); Neutrophil % 75.6 % (47-70); Platelet Count 259 K/mm3 (150-450); RBC Distribution Width CV 13.2 % (11.6-14.6); RBC Distribution Width SD 43.3 fl (35.1-43.9); Red Blood Count 4.38 M/mm3 (4.2-5.4); White Blood Count 9.1 K/mm3 (4.4-11.0)
[2018-03-17 14:10] LABS: POSITIVE COUNT NO; POSITIVE DIFFERENTIAL NO; POSITIVE MORPHOLOGY NO
[2018-03-17 14:24] LABS: Thyroid Stim Hormone (TSH) 1.54 uIU/mL (0.358-3.74)
[2018-03-17 14:56] LABS: HIV - WCH Non-Reactive (Nonreactive); Rubella IgG 356.5 IU/mL
[2018-03-18 12:44] LABS: HEPATITIS B SURFACE AG Negative (Negative); Hep C Antibodies <0.1 s/co ratio (0.0-0.9)
[2018-03-21 07:38] LABS: Prenatal RPR NONREACTIVE (NONREACTIVE)
== END ==
PROVIDERS: Visit Provider Obstetrics & Gynecology
DX: Z34.81 Encounter for supervision of other normal pregnancy, first trimester (principal)
CPT/HCPCS: 36415; 81002; 84443; 85025; 86703; 86762; 86803; 87340

== ENCOUNTER → 2018-07-28 08:18 | Outpatient (CLI) | payer OTHER, SELFPAY ==
[2018-07-28 10:39] LABS: Mean Corp Hgb Conc 32.1 g/gl (32-36); Mean Corpuscular Hgb 27.9 pg (27.0-32.0); Mean Corpuscular Volume 86.7 fL (81-99); Platelet Count 251 K/mm3 (150-450); RBC Distribution Width CV 14.1 % (11.6-14.6); RBC Distribution Width SD 44.8 fl (35.1-43.9); Red Blood Count 3.23 M/mm3 (4.2-5.4); Scan Indicated on CBC? Y/N NO; White Blood Count 8.2 K/mm3 (4.4-11.0)
[2018-07-28 10:44] LABS: Glucose Challenge Gest 1H 50g 159 mg/dL (70-140)
--- OUTSIDE RECORDS SUMMARY | 2018-07-28 17:42 | XMS RPT_ITS | CCD ---
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 [facility] ([id number]) X-Ray, Hand X-Ray, Hand 03-29-2016 - 03-29-2016 [facility] ([id number]) X-Ray, Wrist X-Ray, Wrist 03-29-2016 - 03-29-2016 [facility] ([id number]) Patient education SINUSITIS [facility] ([id number]) The following information is from the original human readable content Type Date Detail Pending order X-Ray, Hand Pending order X-Ray, Wrist Pending order X-Ray, Elbow Patient education SINUSITIS Summary Purpose DATE CREATED AUTHOR AUTHOR'S ORGANIZATION 12/13/2017 [facility] DATE CREATED AUTHOR AUTHOR'S ORGANIZATION 07/28/2018 [facility] Family History No Family History Records Found Advance Directives No Advanced Directives Records Found Additional Source Comments FOR RECORDS PERTAINING TO PATIENTS WHO ARE OR HAVE BEEN ENROLLED IN A CHEMICAL DEPENDENCY/SUBSTANCE ABUSE PROGRAM, SOME INFORMATION MAY BE OMITTED. This clinical summary was aggregated from multiple sources. Caution should be exercised in using it in the provision of clinical care. This summary normalizes information from multiple sources, and as a consequence, information in this document may materially changethe coding, format and clinical context of patient data. In addition, data may be omittedin some cases. CLINICAL DECISIONS SHOULD BE BASED ON THE PRIMARY CLINICAL RECORDS. [facility] provides no warranty or guarantee of the accuracy or completeness of information in this document. UNRECOGNIZED CONTENT PROVIDED BELOW FOR UNRECOGNIZED SECTION INFORMATION SOURCE DATE CREATED AUTHOR AUTHOR'S ORGANIZATION 07/28/2018 [facility] DATE CREATED AUTHOR AUTHOR'S ORGANIZATION 12/13/2017 [facility]
== END ==
PROVIDERS: Visit Provider Obstetrics & Gynecology
DX: Z34.83 Encounter for supervision of other normal pregnancy, third trimester (principal)
CPT/HCPCS: 36415; 82950; 85027

== ENCOUNTER → 2018-08-05 | Outpatient (CLI) | payer OTHER, SELFPAY ==
[2018-08-05 07:45] LABS: Glucose GTT-Gestation. Fasting 91 mg/dL (<105)
[2018-08-05 08:27] LABS: Glucose GTT-Gestational 1 Hr 175 mg/dL (<190)
[2018-08-05 09:30] LABS: Glucose GTT-Gestational 2 Hr 129 mg/dL (<165)
[2018-08-05 11:16] LABS: Glucose GTT-Gestational 3 Hr 83 L (<145)
== END | disposition home or self-care (01) ==
PROVIDERS: Referring Provider Obstetrics & Gynecology; Visit Provider Obstetrics & Gynecology
DX: O24.912 Unspecified diabetes mellitus in pregnancy, second trimester (principal); Z3A.00 Weeks of gestation of pregnancy not specified
CPT/HCPCS: 36415; 82951; 82952

== ENCOUNTER 2018-09-14 16:42 | Outpatient (CLI) | payer OTHER, SELFPAY ==
[2018-09-14 17:27] VITALS: BMI 35.2
[2018-09-14 17:43] LABS: Color, Urine Yellow (Yellow); Glucose, Dipstick Normal (Normal); Ketone-Dipstick Negative (Negative); Leukocyte Esterase-Dipstick 500 /ul (Negative); Nitrite-Dipstick Negative (Negative); Occult Blood-Urine Negative /ul (Negative); Protein-Dipstick Negative (Negative); Urine Bilirubin Dipstick Negative (Negative); Urine Clarity Cloudy (Clear); Urine Urobilinogen Normal (Normal)
[2018-09-14] MEDS: Lactated Ringers 1,000 ML 999 ML IV (18:00)
[2018-09-14] MEDS: Cefazolin 1 GM/50 ML BAG IV (18:00)
[2018-09-14 18:25] LABS: Bacteria 1+ /hpf (None Seen); Red Blood Cells-Urine 0-5 SEEN /hpf (0-5); Squamous Epithelial Cells - UA 5-10 SEEN /hpf (5-10); White Blood Cells 5-10 SEEN /hpf (0-5)
[2018-09-14 18:26] LABS: Absolute Lymphocyte Count 1.55 X10^3/uL (0.83-4.51); Absolute Neutrophil Count 6.2 X10^3/uL (2.0-7.7); Basophil# 0.01 X10^3/uL; Basophil% 0.1 % (0-1); Eosinophil# 0.03 X10^3/uL; Eosinophils% 0.4 % (0-5); Hematocrit 28.9 % (37-47); Hemoglobin 9.1 g/dL (12.0-15.0); Lymphocyte # 1.55 X10^3/ul (4.0); Lymphocyte % 18.1 % (19-41); Mean Corp Hgb Conc 31.5 g/dL (32-36); Mean Corpuscular Hgb 26.8 pg (27.0-32.0); Mean Platelet Vol. 10.7 fl (6.2-12.0); Monocyte% 8.2 % (0-10); NRBC Flagged by Analyzer 0 % (0-5); Neutrophil # 6.21 X10^3/uL (2.7-7.7); Neutrophil % 72.7 % (47-70); Platelet Count 228 K/mm3 (150-450); RBC Distribution Width CV 14.6 % (11.6-14.6); RBC Distribution Width SD 44.9 fl (35.1-43.9); White Blood Count 8.5 K/mm3 (4.4-11.0)
--- NOTE | 2018-09-19 09:05 | OB.TRI.HP_ITS ---
History of Present Illness Reason For Visit: RULE OUT LABOR Date of Service: 09/14/18 Final [place]: 10/19/18 Final [place] Source: US <20 weeks Gestational age: 35 Weeks and 1 Days History of Present Illness: 35-week intrauterine presents with some lower abdominal discomfort. Occasional contraction is noted. care remarkable for a large fibroid. Allergies No Known Allergies Allergy (Verified 09/14/18 19:37) - Pertinent Past Medical History Medical History: Past Medical History (Last Reviewed 08/08/17 @ 16:34 by Nuvia Davis) history of ankle surgery history of wrist surgery Laboratory Studies: Laboratory Tests 09/14/18 09/14/18 Range/Units 18:05 17:15 WBC 8.5 (4.4-11.0) K/mm3 RBC 3.40 L (4.2-5.4) M/mm3 Hgb 9.1 L (12.0-15.0) g/dL Hct 28.9 L (37-47) % MCV 85.0 (81-99) fL MCH 26.8 L (27.0-32.0) pg MCHC 31.5 L (32-36) g/dL RDW Std Deviation 44.9 H (35.1-43.9) fl RDW Coeff of Schuyler 14.6 (11.6-14.6) % Plt Count 228 (150-450) K/mm3 MPV 10.7 (6.2-12.0) fl Immature Gran % (Auto) 0.500 (0.0-0.9) % Neut % (Auto) 72.7 H (47-70) % Lymph % (Auto) 18.1 L (19-41) % [place] % (Auto) 8.2 (0-10) % Eos % (Auto) 0.4 (0-5) % Baso % (Auto) 0.1 (0-1) % Absolute Neuts (auto) 6.2 (2.0-7.7) X10^3/uL Absolute Lymphs (auto) 1.55 (0.83-4.51) X10^3/uL Nucleated RBC % 0 (0-5) % Urine Color Yellow (Yellow) Urine Clarity Cloudy (Clear) Urine pH 7.0 (5.0 - 8.0) Ur Specific [place] 1.010 (1.002-1.030) Urine Protein Negative (Negative) mg/dl Urine Glucose (UA) Normal (Normal) mg/dl Urine Ketones Negative (Negative) mg/dl Urine Occult Blood Negative (Negative) /ul Urine Nitrite Negative (Negative) Urine Bilirubin Negative (Negative) mg/dL Urine Urobilinogen Normal (Normal) mg/dl Ur Leukocyte Esterase 500 H (Negative) /ul Urine RBC 0-5 SEEN (0-5) /hpf Urine WBC 5-10 SEEN (0-5) /hpf Ur Squamous Epith Cells 5-10 SEEN (5-10) /hpf Urine Bacteria 1+ (None Seen) /hpf Urine Mucus Not Reportable NST - FHR Rate Baby A NST Reactive:: Yes FHR Category:: Category I Uterine Activity:: Some mild early decelerations noted with uterine irritability contractions. Impression/Plan 35+ week intrauterine with likely urinary tract infection. Urine analysis suspicious for urinary tract infection. Will send urine for culture and sensitivity. IV hydration given and uterine irritability subsided. Ancef given since IV was in place. Released to home with routine instructions and to call if discomfort increases.
== END 2018-09-14 20:15 | disposition home or self-care (01) ==
LOC: WPOUT 17:24 → WP 17:25
PROVIDERS: Referring Provider Obstetrics & Gynecology; Visit Provider Obstetrics & Gynecology
DX: O26.893 Other specified pregnancy related conditions, third trimester (principal); R82.998 Other abnormal findings in urine; O76 Abnormality in fetal heart rate and rhythm complicating labor and delivery; Z3A.35 35 weeks gestation of pregnancy; D25.9 Leiomyoma of uterus, unspecified
CPT/HCPCS: 96361 ×2; 96365; 36415; 59025; 59050; 81001; 85025; 87086; 87088; 99218; J7120; G0378

== ENCOUNTER → 2018-09-15 17:31 | Outpatient (CLI) | payer OTHER, SELFPAY | PROVIDERS: Referring Provider Obstetrics & Gynecology; Visit Provider Obstetrics & Gynecology | DX: Z36.85 Encounter for antenatal screening for Streptococcus B (principal) | CPT/HCPCS: 87081 ==

== ENCOUNTER 2018-10-26 21:16 | Inpatient (IN) | payer OTHER, SELFPAY ==
[2018-10-26 21:28] VITALS: BMI 36.3
[2018-10-26] MEDS: 0.9% Saline Lock 10 ML Syringe IV ×2 (22:25→22:45)
[2018-10-26 22:46] LABS: Absolute Lymphocyte Count 1.35 X10^3/uL (0.83-4.51); Absolute Neutrophil Count 6.3 X10^3/uL (2.0-7.7); Basophil# 0.02 X10^3/uL; Basophil% 0.2 % (0-1); Eosinophil# 0.08 X10^3/uL; Hematocrit 27.6 % (37-47); Hemoglobin 8.2 g/dL (12.0-15.0); Lymphocyte # 1.35 X10^3/ul (4.0); Lymphocyte % 16.1 % (19-41); Mean Corp Hgb Conc 29.7 g/dL (32-36); Mean Corpuscular Hgb 23.4 pg (27.0-32.0); Mean Corpuscular Volume 78.9 fL (81-99); Mean Platelet Vol. 10.8 fl (6.2-12.0); Monocyte# 0.57 X10^3/uL; Monocyte% 6.8 % (0-10); NRBC Flagged by Analyzer 0 % (0-5); Neutrophil # 6.34 X10^3/uL (2.7-7.7); Neutrophil % 75.4 % (47-70); Platelet Count 248 K/mm3 (150-450); RBC Distribution Width CV 16.3 % (11.6-14.6); White Blood Count 8.4 K/mm3 (4.4-11.0)
--- NOTE | 2018-10-26 22:57 | HP.PCM_ITS ---
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 NUVIA PAP I-G W/RFX HRHPV 03/03/18 NOTE Original Ordering Provider: Nuvia Plaza DIAGN . NEGATIVE FOR INTRAEPITHELIAL LESION OR MALIGNANCY. ADEQ . Satisfactory for evaluation. Endocervical and/or squamous metaplastic cells (endocervical component) are present. PERFORM . Rekha De Leon Rapid Outsole Stitcher (ASCP) TEST METHOD . This liquid based ThinPrep(R) pap test was screened with the use of an image guided system. COMM . . PAPSMR . The Pap smear is a screening test designed to aid in the detection of premalignant and malignant conditions of the uterine cervix. It is not a diagnostic procedure and should not be used as the sole means of detecting cervical cancer. Both false-positive and false-negative reports do occur. HPV RFLX . The HPV DNA reflex criteria were not met with this specimen result therefore, no HPV testing was performed. Performed at: [address] [id number] Pit Boss: Nichol Patel MD, Phone: [phone] Reviewed by NUVIA WEATHERS/[facility] BY PCR 03/03/18 NOTE Original Ordering Provider: Nuvia [facility] PCR Negative Negative NG BY PCR Negative Negative Reviewed by NUVIA Impression/Plan: 41-week intrauterine for postdate induction with Cytotec. Anemia of noted. Large uterine fibroid. Anticipate spontaneous vaginal delivery.
[2018-10-26] MEDS: miSOPROStol 25 MCG TABLET VAGINAL (23:43)
[2018-10-26] MEDS: Lactated Ringers 1,000 ML 50 ML IV (23:43)
[2018-10-27] VITALS (10 sets, daily range): BP systolic 104–150; BP diastolic 58–81; PULSE 88–104; RESP 16–18; TEMP 36.1–37.2; O2SAT 94–100
[2018-10-27] MEDS: Acetaminophen 325 MG Tablet PO (02:28)
[2018-10-27] MEDS: Lactated Ringers 500 ML 999 ML IV ×3 (03:45→18:44)
[2018-10-27] MEDS: fentaNYL-bupivacaine (epidural) 100 ML BAG EPIDURAL ×3 (04:30→14:20)
[2018-10-27] MEDS: Ondansetron 4 MG/2 ML Vial IV ×2 (04:42→18:37)
[2018-10-27] MEDS: Lactated Ringers 1,000 ML 200 ML IV ×3 (04:55→14:47)
--- NOTE | 2018-10-27 07:28 | PCM.PN.BLA ---
Progress Note LABOR PROGRESS NOTE Comfortable current in hands and knees position. AVSS EFM/IFM: 130-140s avg variability accels. Occasional late deceleration. decel noted after prolonged UC noted. UCs q 1-8+ mins (mostly q 1-4 mins) CX: last check /-2 thick mec noted now A/P: 41 1 wk
[2018-10-27] MEDS: Oxytocin 30 units/NS 500 ml 30 UNITS/500 ML IV.SOLN IV (12:41)
--- NOTE | 2018-10-27 13:00 | PCM.PN.BLA ---
Progress Note LABOR PROGRESS NOTE 41 1/7 wk EGA labor Comfortable w/ epidural AVSS Pitocin just started, IUPC was replaced. IFM 120-130s avg variability. Accels noted. UCs q 1 1/2-6 mins. UCs q 1 1/2 - 6+ mins. ? adequacy CX: /-2 per last RN check with change IUPC at that time A/P: 41 1/7 wk EGA labor. Pitocin started. Comfortable w/ epidural. Category I tracing at present. continue labor. Watch progress, descent.
--- NOTE | 2018-10-27 17:41 | PCM.PN.BLA ---
Progress Note LABOR PROGRESS NOTE Feeling more pressure in vagina AVSS Pitocin at 4 mIU/min after AROM. IFM: 120-130s avg variability accels. Category I tracing. UCs q 1-4 mins with some coupling and spacing CS: /-2 MUCH caput noted. Dang bulb reduced to above vtx Scant blood in catheter A/P: 41 1/7 wk labor induction. Continue induction Reviewed family hx of many C sections. Will continue labor for now. Advised re criteria for FTP, CPD.
--- NOTE | 2018-10-27 18:59 | OB.TRI.PN ---
Progress Notes Date of Service: 10/27/18 Progress Note: S: Feeling nausea, vaginal pressure O: BP 130/70 HR 106 FHTs: 130, mod variability, no accels; prolonged decel noted to 70s x 3 minutes then back to baseline UCs: Q 2-3 minutes, palpate firm, adequate per IUPC VE: 8/90/-1, edematous, much caput, thick mec noted Pitocin 4mu A: Active labor, intolerance to labor Category 2 FHTs P: Pitocin off Pt in hands & Knees position, IV bolus Dr. Plaza updated Laboratory Studies: Laboratory Tests 10/26/18 10/26/18 Range/Units 22:25 22:25 WBC 8.4 (4.4-11.0) K/mm3 RBC 3.50 L (4.2-5.4) M/mm3 Hgb 8.2 L (12.0-15.0) g/dL Hct 27.6 L (37-47) % MCV 78.9 L (81-99) fL MCH 23.4 L (27.0-32.0) pg MCHC 29.7 L (32-36) g/dL RDW Std Deviation 46.0 H (35.1-43.9) fl RDW Coeff of Schuyler 16.3 H (11.6-14.6) % Plt Count 248 (150-450) K/mm3 MPV 10.8 (6.2-12.0) fl Immature Gran % (Auto) 0.500 (0.0-0.9) % Neut % (Auto) 75.4 H (47-70) % Lymph % (Auto) 16.1 L (19-41) % Lowndes % (Auto) 6.8 (0-10) % Eos % (Auto) 1.0 (0-5) % Baso % (Auto) 0.2 (0-1) % Absolute Neuts (auto) 6.3 (2.0-7.7) X10^3/uL Absolute Lymphs (auto) 1.35 (0.83-4.51) X10^3/uL Nucleated RBC % 0 (0-5) % Blood Type O POSITIVE Antibody Screen NEGATIVE
--- NOTE | 2018-10-27 19:09 | PCM.PN.BLA ---
Progress Note labor induction 41 1/7 WK Hands and knees now. Pitocin off now 2/2 FHR deceleration 2 min decel with a run of UCs. back to 130-140s avg variability. UCs spacing out. Vtx remains at same station. Significant caput noted. 41 1/7 wk EGA FHR deceleration. Significant caput, worsening. Blood in Dang. Family hx significant for all C section deliveries. Reviewed findings: offered primary C section vs continued labor. FHR ok now. but Pitocin off Elects to proceed with C section delivery. g nurse and surgical technology instructor aware. OB dept and anesthesia aware. Proceed with primary C section and planned bilateral partial salpingectomy. Pt also with large fibroid uterus.
--- NOTE | 2018-10-27 19:18 | DCINST_ITS ---
Discharge Diet: No Restrictions Discharge Activity: May Shower, May Take a Tub Bath May resume sexual activity in: 4-6 weeks Lifting Restrictions: 20 pounds Additional Activity Instructions:: Nothing in the vagina for 4-6 weeks. You may return to work/school in 6 weeks. Change Dressing in (Days):: 7 Remove Dressing in (days):: 7 Cleanse incision/area with: Soap & Water, Keep Dressing Clean & Dry Additional Instructions: If you experience any of the following, contact your healthcare provider. * Bleeding that soaks a pad every hour for 2 hours * Fever 100.4 or higher * Unrelieved incision or abdominal pain * Swelling, redness, discharge or bleeding from your incision * Problems urinating (including inability to urinate or burning while urinating). * Visual changes * Severe headache * Flu-like symptoms * Pain or redness in one of both of your breasts * Pain, warmth, tenderness or swelling in your legs, especially the calf area * Frequent nausea and vomiting * Symptoms of depression or anxiety If you experience any of the following, call 911 or go to the nearest Emergency Room. * Chest pain * Problems breathing * Seizure activity * Partial or complete paralysis of a body part, slurred speech, weakness or drooping of the face, or a sudden inability to walk or hold your balance Allergies/Adverse Reactions: Allergies No Known Allergies Allergy (Verified 10/26/18 21:29) Medications to take at Discharge Docusate Sodium [Colace] 100 mg PO BID #30 cap 10/27/18 Naproxen [Naprosyn] 250 - 500 mg PO TID PRN PRN #30 tab 10/27/18 Oxycodone [Oxyir] 5 - 10 mg PO Q6H PRN PRN 3 Days #15 tab 10/27/18 Polyethylene Glycol 3350 [Miralax] 17 gm PO DAILY PRN #14 packet 10/27/18 The following prescriptions were given: Docusate Sodium [Colace] 100 mg PO BID #30 cap Prescription Printed Polyethylene Glycol 3350 [Miralax] 17 gm PO DAILY PRN #14 packet PRN Reason: Constipation Prescription Printed Naproxen [Naprosyn] 250 - 500 mg PO TID PRN PRN #30 tab PRN Reason: Mild-Mod Pain (-06/27) Prescription Printed Oxycodone [Oxyir] 5 - 10 mg PO Q6H PRN PRN 3 Days #15 tab PRN Reason: Mod-Severe Pain (4-11/27) Prescription Printed Follow-Up: Call to make an appointment with your doctor for an incision check in 1-2 weeks. You will also need a 6 week post- follow up appointment. Test results from this visit will be discussed in further detail at your follow- up appointment, if applicable. Please Follow Up With: Nuvia Plaza MD - [phone] When: Call to make an appointment for an incision check in 2 weeks. Primary Care Physician: KENNEDY DUNLAP [Other] Proposed Discharge Date: 10/30/18
[2018-10-27] MEDS: Sodium Citrate/Citric Acid 30 ML UDC PO (19:25)
[2018-10-27] MEDS: Cefazolin 2 GM in 0.9% Normal Saline 100 ML IV (19:35)
[2018-10-27] MEDS: Methylergonovine 0.2 MG/ML Ampul IM (20:00)
--- NOTE | 2018-10-27 20:39 | OP.PCM_ITS ---
Report of Operation Date of Procedure: 10/27/18 Pre-Operative Diagnosis: 41 1/7 wk induction thick mec. FHR deceleration. Post-Operative Diagnosis: Same Surgery/Procedure Performed:: Primary C section (NO BILATERAL TUBAL LIGATION) Description of Surgical Findings:: Enlraged uterus with large fibroid at R lower uterine segment. Could not deliver uuterus through incision. COuld not access fallopian tubes due to enlarged uterus and due to patient discomfort with attempt at visualization. Aguilar viable male 8/9 apgars. 9# 7 oz. Type of Anesthesia:: Epidural/Supplement Anesthesiologist: Atul Lubin Specimen's removed: Placenta Drains: Dang draining bloody appearing urine prior to case Estimated Blood Loss (mL): 800 Fluids Replaced: LR Delivery Classification: MIGUELINA Final [place]: 10/19/18 Final [place] Source: US <20 weeks Gestational age: 41 Weeks and 1 Days business services administrator: Adrienne Kennedy Type of Anesthesia:: Epidural/Supplement - atul lubin CRNA Date of Procedure: 10/27/18 Pre-Operative Diagnosis: 41 1/7 wk induction postdates. meconium stained fluid. FHR deceleration Post-Operative Diagnosis: Same. Indications: 41 1/7 wk heart rate deceleration. Description of Procedure: Narrative account: After the risks, benefits and alternatives of the procedure were reviewed with the patient, informed consent was obtained. The patient was taken to the Operating room with an IV running, Dang catheter in place, and epidural catheter in place. The epidural was dosed to surgical levels. She was placed in a dorsal supine position on the operating table. She was briefly frog- legged for vaginal vault prep, and then repositioned to dorsal supine position with leftward displacement of the uterus, and prepped and draped in the usual sterile fashion. Once the epidural was deemed adequate, a Pfannenstiel skin incision was created using the knife. The incision was carried down to the rectus fascia using the knife. The fascia was nicked in the midline. The fascial incision was extended bilaterally using curved Salazar scissors. The superior aspect of the fascial incision was grasped with Bassam clamps and tented up and the underlying rectus abdominal muscles were dissected free. In a similar manner, the inferior aspect of the facial incision was grasped with Bassam clamps tented up and the underlying rectus abdominal muscles were dissected free. The rectus abdominis muscles were in the midline and the peritoneum was identified and entered by blunt dissection high in the incision. The peritoneum was stretched laterally and a bladder blade was inserted. A bladder flap was created along the lower uterine segment with Metzenbaum scissors . The uterine incision was then created using Metzenbaum scissors. The operators fingertips were used to extend the uterine incision by blunt dissection in a caudad- cephalad orientation . Clear fluid was noted at amniotomy. The vertex was then delivered atraumatically through the incision. Significant caput was noted. The OP and nares were bulb suctioned on the abdomen. The shoulders delivered easily . The cord clamped x two and cut. And the was handed off to the nurse awaiting delivery after briefly showing him to his parents. The baby had a spontaneous, vigorous cry. The placenta was then delivered from the fundal position. The uterus was large, with a fibroid at the lower uterine segemtn on the R side. It could not be delivered through the incision. It was cleared of clots and debris . The uterine incision was repaired with 1 Vicryl in a running locked fashion. A second imbricating layer was then placed, using 1 Monocryl in running nonlocked fashion. Multipel figure of eight and mattress stitches of 1 vicryl were required for hemostasis. Bovie cautery was used to treat any bleeding areas along the incision and at random spots at the uterine serosa . Adequate hemostasis was noted. An attempt was mad to rotate the uterus to bring the fallopian tubes into view for BPS. This could not be accomplished due to the size of the uterus and due to patient discomfrot. NO BILATERAL TUBAL LIGATION was performed. The gutters were cleared of clots and debris and the incision at the uterus was inspected. Surgicel powder was applied along the entire incision for continued hemostasis. Adequate hemostasis was noted. The peritoneal edges were reapproximated in the midline with a continuouse suture of 1 Vicryl. the rectus abdominis muscles were reapproximated at the lower portion of the incision. The superior portion was widely . Excellent hemostasis was noted at the subfascial space Surgicel was dusted over this layer as well. The fascia was closed in a running nonlocked fashion with a Stratofix. The Subcutaneous fatty tissue was Bovie cauterized as needed for hemostasis. Surgicel was liberally dusted at this layer to prevent seroma formation. This layer was then reapproximated in a single layer closure of running 3-0 Vicryl to eliminate space. The skin edges were closed in a Subcuticular stitch of 4-0 Monocryl. The incision was cleansed. Cavilon, Steristrips, and Mepilex dressing were applied to the skin . The patient was then transferred to the recovery room bed in stable condition after tolerating the procedure well. Sponge, lap, needle and instrument counts correct times two. Medications given preop and intraoperatively included: Ancef 2 gm was given employee relation manager to the operating room. The patient also received Pitocin given IV after cord clamp, and Toradol 30 mg IV times one. Methergine 0.2 mg IM times one was also given for mild uterine atony, bleeding. For a complete listing of medications given preop and intraoperatively, please see the anesthesia record. Amniotic Fluid Description: Moderate meconium Placenta Disposition: [facility] Drain: Dang to straight drain Fluids Replaced: LR Cord Entanglement: Around neck x 2, loose Cord Vessel Description: 3 Vessels Esitmated Blood Loss (ml): 800 Infant Gender: Male (1 minute): 8 (5 minute): 9 Antibiotic Given: Ancef 2 grams IV x1 Complications: None - Admit VTE Documentation VTE Present on Admission: No VTE Mechan Device Prophylaxis: SCD's VTE Pharm Prophylaxis ordered?: No
[2018-10-27] MEDS: Oxytocin 30 units/NS 500 ml 30 UNITS/500 ML IV.SOLN 167 UNITS IV (21:00)
--- NOTE | 2018-10-27 21:08 | PLAC_PTH ---
PATIENT: JIM BRADFORD LOC: WP U#:[id number] AGE/SX: 38/F ROOM: WP006 RE10/26/[address]: Dr. Judah Yoon MD : 1980 BED: 1 DIS: 10/30/2018 SPEC #: [id number] RECD: 10/27/18 22:53 STATUS: JANET REJagdish #: [id number] LYNNE: 10/27/18 21:[address]: Nuvia Plaza DEPT: SURGICAL PATHOLOGY RECD BY: Charlie Cormier ENTERED: 10/28/18 09:12 SP TYPE: PLACENTA OTHR DR: Dr. Judah Yoon MD [facility] Doctor Tissues: Placenta, NOS Procedures: Surgery Specimen Level V HEADER OPERATION: Primary section PRE-OP DIAGNOSIS: Thick meconium TISSUE SUBMITTED: Placenta MICROSCOPIC DIAGNOSIS Aguilar placenta (676 gm): Umbilical cord - trivascular with acute funisitis. Placental membranes - acute deciduitis. Pigmented macrophages consistent with meconium. Placental disc - intervillous congestion, mild Jamil-Remy change and focal nonspecific villitis. AM:liz 10/30/18 MICROSCOPIC DESCRIPTION Slides are reviewed. GROSS DESCRIPTION SPECIMEN: PLACENTA / CLINICAL INFORMATION: A. Weight: 4.282 kg B. Gestational Age: 41 weeks C. Sex: Male PLACENTAL WEIGHT (POST FIXATION): 676 gm PLACENTAL DIMENSIONS: 17 x 16 x 3.5 cm PLACENTAL SHAPE: Usual ovoid PLACENTAL WEIGHT FOR GESTATIONAL AGE: Over 99th percentile MEMBRANES - Present A. Insertion: Marginal B. Site of rupture from edge: The membranes are partly fragmented and appear to be ruptured at the edge of placental disc. C. Color of membrane: Celis-greenish and mucoidy consistent with meconium staining. D. Abnormalities: None UMBILICAL CORD - Present A. Color: Celis-spencer B. Insertion: Paracentral C. Length: 45 cm D. Diameter: 1 cm E. Number of vessels: Three F. Abnormalities: None PLACENTAL DISC - Present A. Color of surface: Celis-spencer B. surface abnormalities: None C. Maternal cotyledons: Intact with minimal tears. The maternal surface appears partly disrupted, however, appears to be complete. D. Attached retro placental clot: No clot E. Cut surface: Dark red and spongy F. Lesions: None G. Separate clot: Present in the container is multiple blood clots weighing in aggregate 50 gm and measuring 6 x 7 x 2 cm. SECTIONS SUBMITTED: 1. Membrane roll 2. Cord, maternal end 3. Cord, end 4. Placental disc, and maternal surfaces 5. Placental disc, and maternal surfaces 6. Placental disc, and maternal surfaces 7. Additional membranes SJ:liz 10/29/18 TC:2 CPT: 33651
[2018-10-27 22:51] LABS: Pathology Specimen OB SEE PATHOLOGY REPORT
[2018-10-27] MEDS: HYDROmorphone 0.5 MG/0.5 ML SYRINGE IV (22:55)
[2018-10-27] MEDS: 0.9% Saline Lock 10 ML Syringe IV (22:55)
--- NOTE | 2018-10-27 23:45 | NURSING ---
Epidural cath discontinued with blue tip intact. pt tolerated well
[2018-10-28] VITALS (17 sets, daily range): BP systolic 100–130; BP diastolic 60–71; PULSE 90–116; RESP 15–18; TEMP 36.6–37.3; O2SAT 95–98
[2018-10-28] MEDS: Lactated Ringers 1,000 ML 100 ML IV (01:00)
[2018-10-28] MEDS: Ketorolac 30 MG/ML Syringe IV ×4 (01:57→19:37)
[2018-10-28 05:23] LABS: Hemoglobin 8.3 g/dL (12.0-15.0); Mean Corp Hgb Conc 30.7 g/dL (32-36); Mean Corpuscular Hgb 24.1 pg (27.0-32.0); Mean Corpuscular Volume 78.5 fL (81-99); Mean Platelet Vol. 10.7 fl (6.2-12.0); Platelet Count 206 K/mm3 (150-450); RBC Distribution Width CV 16.6 % (11.6-14.6); RBC Distribution Width SD 46.5 fl (35.1-43.9); Red Blood Count 3.44 M/mm3 (4.2-5.4); White Blood Count 14.4 K/mm3 (4.4-11.0)
--- NOTE | 2018-10-28 08:00 | PCM.PN.OB ---
Subjective: POD#1 Primary C/S FHR deceleration prior to delivery. Doing well. Sore, but pain meds helpful. Has been bottle feeding, but plans to try to nurse. Gilliam in place. Clear yellow urine now, clearing in tube (bloody prior to delivery). States minimal vaginal bleeding. - Physical Exam General: Alert, Oriented x3, Cooperative, No apparent distress HEENT: Atraumatic, EOMI Neck: Supple Abdomen: Soft - Fundus firm tender consistent with postop status and at 1-2 cm superior to umbilicus. (well below marked level postop) Fibroid uterus known Skin: Incision - Mepilex CDI. Psych/Mental Status: Normal Affect Vital Signs Temp Pulse Resp BP Pulse Ox 98.0 F 105 H 16 100/63 97 10/28/18 05:20 10/28/18 07:03 10/28/18 07:03 10/28/18 05:20 10/28/18 07:03 Oxygen Flow Rate (L/min) 1 Oxygen Delivery Method Room Air Weight: 96.162 kg Body Mass Index (BMI) 36.3 Intake and Output for Last 24 Hours //06 11//10/28/18 23:59 23:59 23:59 Intake Total 1.67 / 1.67 6543.31 / 6543.31 550 / 550 Output Total 1150 / 1150 200 / 200 Balance 1.67 / 1.67 5393.31 / 5393.31 350 / 350 Laboratory Tests Past 24 Hrs 10/28/18 05:10 WBC 14.4 H RBC 3.44 L Hgb 8.3 L Hct 27.0 L MCV 78.5 L MCH 24.1 L MCHC 30.7 L RDW Std Deviation 46.5 H RDW Coeff of Schuyler 16.6 H Plt Count 206 MPV 10.7 Medical Necessity - Tobacco Use Smoking Status: Never smoker Assessment/Plan POD#1 Primary C section Stable postop. Hgb stable, improved. Minimal bleeding. Inc diet and activity as tolerated. Begin po meds . D/C gilliam for voiding trial later today. S/L IV for continued toradol Anemia, iron deficiency of . Fibroid uterus also. -- iron bid to continue Continue routine care.
[2018-10-28] MEDS: 0.9% Saline Lock 10 ML Syringe IV ×4 (08:18→19:38)
[2018-10-28] MEDS: Ferrous Gluconate 324 MG Tablet PO (18:20)
[2018-10-29] MEDS: Acetaminophen 500 MG Tablet 1000 MG PO (00:05)
[2018-10-29] MEDS: 0.9% Saline Lock 10 ML Syringe IV ×4 (01:32→19:34)
[2018-10-29] MEDS: Ketorolac 30 MG/ML Syringe IV ×4 (01:32→19:34)
[2018-10-29 01:40] VITALS: BP 116/69; PULSE 106; RESP 16; TEMP 37.3; O2SAT 96
[2018-10-29] MEDS: oxyCODONE 5 MG Tablet PO ×3 (01:49→16:11)
--- NOTE | 2018-10-29 07:41 | PCM.PN.OB ---
Subjective: POD#2 Primary C/S FHR Deceleration. Doing well. Pain control adequate. Wearing abdominal binder. Tolerating diet well, but not very hungry. + flatus. Nursing, but baby is sleepy. - Physical Exam General: Alert, Oriented x3, Cooperative, No apparent distress HEENT: Atraumatic, EOMI Neck: Supple Abdomen: Soft - Fundus firm, tender c/w postop status and now at umbilicus (further involution noted) Skin: Incision - Mepilex intact, CDI. Psych/Mental Status: Normal Affect Vital Signs Temp Pulse Resp BP Pulse Ox 99.2 F H 106 H 16 116/69 96 10/29/18 01:40 10/29/18 01:40 10/29/18 01:40 10/29/18 01:40 10/29/18 01:40 Oxygen Flow Rate (L/min) 1 Oxygen Delivery Method Room Air Weight: 96.162 kg Body Mass Index (BMI) 36.3 Intake and Output for Last 24 Hours //10/28/18 10/29/18 23:59 23:59 23:59 Intake Total 6543.31 / 6543.31 1550 / 1550 Output Total 1150 / 1150 2200 / 2200 Balance 5393.31 / 5393.31 -650 / -650 Medical Necessity - Tobacco Use Smoking Status: Never smoker Assessment/Plan POD#2 Primary C section Stable postop. Minimal bleeding. Encouraged IS and C and DB, ambulation to continue to expand lungs. Watch temps. Low gr 99 suspect atelectasis. Inc diet and activity as tolerated. Anemia, iron deficiency of . Fibroid uterus also. -- iron bid to continue Continue routine care.
[2018-10-29 07:44] VITALS: BP 121/69; PULSE 90; RESP 16; TEMP 36.2; O2SAT 98
[2018-10-29] MEDS: Ferrous Gluconate 324 MG Tablet PO ×2 (07:54→16:11)
[2018-10-29] MEDS: Senna/Docusate Sodium 1 Tablet PO (07:54)
[2018-10-29 14:05] VITALS: BP 121/70; PULSE 115; RESP 16; TEMP 36.7; O2SAT 99
[2018-10-29 20:23] VITALS: BP 126/64; PULSE 100; RESP 18; TEMP 36.8; O2SAT 96
[2018-10-30] MEDS: Naproxen 250 MG Tablet PO (01:43)
[2018-10-30 01:51] VITALS: BP 111/73; PULSE 111; RESP 18; TEMP 36.8; O2SAT 94
[2018-10-30 08:00] VITALS: BP 111/70; PULSE 67; RESP 16; TEMP 36.9
[2018-10-30] MEDS: oxyCODONE 5 MG Tablet PO (08:35)
[2018-10-30] MEDS: Senna/Docusate Sodium 1 Tablet PO (08:35)
[2018-10-30] MEDS: Ferrous Gluconate 324 MG Tablet PO (08:37)
--- NOTE | 2018-10-30 10:28 | PCM.PN.OB ---
Subjective: Feeling well, pain well controlled; passing gas and has had bowel movement; well; uncertain about contraception, absolutely certain wants no more pregnancies, desires tubal, considering Nexplanon in interval, may consider vasectomy - Physical Exam General: Alert, Oriented x3, Cooperative, No apparent distress HEENT: Atraumatic, PERRLA, EOMI Oral: Moist Mucosa Neck: Supple Lungs: Clear to auscultation Cardiovascular: Regular rate, Regular Rhythm Abdomen: Bowel Sounds Present, Soft, Non Tender - Fundus at umbilicus, wearing abdominal binder, Passing Flatus Extremities: No Calf Tenderness, Edema, Peripheral Pulses Normal Skin: Incision - Fundus, firm, midline, U/2 Mepilex dressing D/I; lochia scant Neurological: Cranial nerves II-XII grossly intact, Deep Tendon Reflexes 2+/4 and Symmetrical Psych/Mental Status: Normal Affect, Appropriate, Alert and oriented to time, place, person, mood and affect Vital Signs Temp Pulse Resp BP Pulse Ox 98.4 F 67 16 111/70 94 10/30/18 08:00 10/30/18 08:00 10/30/18 08:00 10/30/18 08:00 10/30/18 01:51 Oxygen Flow Rate (L/min) 1 Oxygen Delivery Method Room Air Weight: 212 lb Body Mass Index (BMI) 36.3 Intake and Output for Last 24 Hours 10/28/18 10/29/18 10/30/18 23:59 23:59 23:59 Intake Total 1550 / 1550 Output Total 2200 / 2200 Balance -650 / -650 Medical Necessity - Tobacco Use Smoking Status: Never smoker Assessment/Plan Assessment: POD #3 Normal involution Incision healing well Iron deficiency anemia of Fibroid uterus Plan: Discussed contraceptive options, will revisit at post op visit Discussed discharge instructions, warning s/s,jose enrique to call, availability of retirement sales consultant Continue iron supplementation Discharge home today Follow up in office in two weeks
[2018-10-30 14:41] VITALS: BP 130/75; PULSE 98; RESP 16; TEMP 36.4
--- NOTE | 2018-11-03 08:01 | DS.PCM_ITS ---
Discharge Date and Diagnosis Date of Admission: 10/26/18 - 41 1/7 wk induction postdates. meconium stained fluid. FHR deceleration Date of Discharge: 10/30/18 - S/P primary C section Hospital Course and Treatment Operations: - - 41 1/7 wk induction postdates. meconium stained fluid. Primary C section for FHR deceleration Summary of Care Provided: The patient is a 38 year old female 41 1/7 wk induction for postdates. Admitted for indcution meconium stained fluid noted at AROM. Labor then with slow progress, and FHR deceleration noted. Primary C section performed Aguilar viable male 9# 7 oz Surgeyr uncomplicated. Large fibroid noted at anterior R uterus, superior to incision. Required additional suture placement for hemostasis. Postoperative course uneventful. Preoperative Hgb 8.2 g/dl Postoperative Hgb 8.3 g/dl. Discharged home in stable condition with benign exam , to follow up in [facility] in two weeks for postop incision check. - Physical Exam Vital Signs Temp Pulse Resp BP Pulse Ox 97.6 F L 98 16 130/75 H 94 10/30/18 14:41 10/30/18 14:41 10/30/18 14:41 10/30/18 14:41 10/30/18 01:51 Oxygen Flow Rate (L/min) 1 Oxygen Delivery Method Room Air Weight: 96.162 kg Body Mass Index (BMI) 36.3 Discharge Diet: No Restrictions Discharge Activity: May Shower, May Take a Tub Bath May resume sexual activity in: 4-6 weeks Additional Activity Instructions:: Nothing in the vagina for 4-6 weeks. You may return to work/school in 6 weeks. Change Dressing in (Days):: 7 Remove Dressing in (days):: 7 Cleanse incision/area with: Soap & Water, Keep Dressing Clean & Dry Home Medications: Medications to take at Discharge Docusate Sodium [Colace] 100 mg PO BID #30 cap 10/27/18 Naproxen [Naprosyn] 250 - 500 mg PO TID PRN PRN #30 tab 10/27/18 Polyethylene Glycol 3350 [Miralax] 17 gm PO DAILY PRN #14 packet 10/27/18 Ferrous Gluconate 325 mg PO BIDCM #60 tab 10/28/18 Following Prescrptions Were Given to Patient: Docusate Sodium [Colace] 100 mg PO BID #30 cap Prescription Printed Ferrous Gluconate 325 mg PO BIDCM #60 tab Prescription Printed Polyethylene Glycol 3350 [Miralax] 17 gm PO DAILY PRN #14 packet PRN Reason: Constipation Prescription Printed Naproxen [Naprosyn] 250 - 500 mg PO TID PRN PRN #30 tab PRN Reason: Mild-Mod Pain (1-5) Prescription Printed Primary Care Physician: KENNEDY DUNLAP [Other] Please Follow Up With: Nuvia Plaza MD - [phone] When: Call to make an appointment for an incision check in 2 weeks. Medical Necessity - Tobacco Use Smoking Status: Never smoker Meaningful Use Info Meaningful Use Diagnoses (Choose all that apply): None applicable
== END 2018-10-30 14:50 | disposition home or self-care (01) | DRG 785 ==
PROVIDERS: Obstetrics & Gynecology; Admitting Provider Obstetrics & Gynecology; Referring Provider Obstetrics & Gynecology; Visit Provider Obstetrics & Gynecology
DX: O76 Abnormality in fetal heart rate and rhythm complicating labor and delivery (principal); O48.0 Post-term pregnancy; O65.5 Obstructed labor due to abnormality of maternal pelvic organs; D25.1 Intramural leiomyoma of uterus; O34.13 Maternal care for benign tumor of corpus uteri, third trimester; O77.0 Labor and delivery complicated by meconium in amniotic fluid; O99.02 Anemia complicating childbirth; D50.9 Iron deficiency anemia, unspecified; O69.81X0 Labor and delivery complicated by cord around neck, without compression, not applicable or unspecified; Z3A.41 41 weeks gestation of pregnancy; Z37.0 Single live birth; Z30.2 Encounter for sterilization; Z80.0 Family history of malignant neoplasm of digestive organs; Z82.49 Family history of ischemic heart disease and other diseases of the circulatory system; Z82.5 Family history of asthma and other chronic lower respiratory diseases
CPT/HCPCS: 59025; 59050; 85025; 85027; 86850; 86900; 86901; 88307; 94762; 99218; J7120; A4216; G0378; J2405

== ENCOUNTER 2018-12-04 05:58 | Day surgery (SDC) | payer OTHER, SELFPAY ==
[2018-12-01 11:26] LABS: Hematocrit 35.3 % (37-47); Hemoglobin 10.2 g/dL (12.0-15.0); Mean Corp Hgb Conc 28.9 g/dL (32-36); Mean Corpuscular Hgb 23.5 pg (27.0-32.0); Mean Corpuscular Volume 81.3 fL (81-99); Mean Platelet Vol. 10.8 fl (6.2-12.0); Platelet Count 313 K/mm3 (150-450); RBC Distribution Width CV 18.3 % (11.6-14.6); RBC Distribution Width SD 53.3 fl (35.1-43.9); Red Blood Count 4.34 M/mm3 (4.2-5.4); White Blood Count 7.4 K/mm3 (4.4-11.0)
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
[2018-12-04] VITALS (8 sets, daily range): BP systolic 105–127; BP diastolic 63–75; PULSE 62–85; RESP 14–18; TEMP 36.1–36.8; O2SAT 93–98; BMI 31.4
[2018-12-04 06:26] LABS: Internal QC Validated? YES +Cl - CLEAR BKGD; Pregnancy, Urine Negative Negative
[2018-12-04] MEDS: Lactated Ringers 1,000 ML 150 ML IV (06:47)
--- NOTE | 2018-12-04 07:23 | DCINST_ITS ---
Discharge Diet: No Restrictions Discharge Activity: May not drive while taking narcotic pain medications., May Shower, May Take a Tub Bath Return to work on:: 12/08/18 May resume sexual activity in: 1-2 weeks - when comfortable Additional Activity Instructions:: Ambulate often the next week after surgery. Nothing in the vagina for 5 days. Call your doctor if you observe: Fever of 101 or Higher, Inability to have a bowel movement, Uncontrolled pain Change Dressing in (Days):: 7 Remove Dressing in (days):: 7 Cleanse incision/area with: Soap & Water, Keep Dressing Clean & Dry Additional Instructions: You may take two Tylenol 500 mg tabs by mouth every 8 hrs for milder pain, and add OxyIR if pain is more severe. You may also take EITHER two Aleve or Three Ibuprofen by mouth every 6 hrs for moderate pain. Allergies/Adverse Reactions: Allergies No Known Allergies Allergy (Verified 12/03/18 09:51) Medications to take at Discharge Oxycodone [Oxyir] 5 mg PO Q6H PRN PRN 3 Days #10 tablet 12/04/18 The following prescriptions were given: Oxycodone [Oxyir] 5 mg PO Q6H PRN PRN 3 Days #10 tablet PRN Reason: Mod-Severe Pain (4-11/27) Transmission Status: Sent to [facility] Primary Care Physician: KENNEDY DUNLAP [Other] Test Results: Test results from this visit will be discussed in further detail at your follow- up appointment, if applicable. Please Follow Up With: Nuvia Plaza MD - [phone] When: follow up appointment in [facility] in two weeks as planned Proposed Discharge Date: 12/04/18
--- NOTE | 2018-12-04 07:30 | FALS_PTH ---
PATIENT: JIM BRADFORD LOC: [facility] [place] U#:[id number] AGE/SX: 38/F ROOM: RE12/04/[address]: Dr. Nuvia Plaza MD : 1980 BED: DIS: 12/04/2018 SPEC #: [id number] RECD: 12/04/18 11:10 STATUS: JANET REJagdish #: [id number] LYNNE: 12/04/18 07:[address]: Nuvia Plaza DEPT: SURGICAL PATHOLOGY RECD BY: Dwight Mendez ENTERED: 12/04/18 11:42 SP TYPE: FALL TUBES OTHR DR: Out of [facility] Doctor Tissues: Fallopian tube Procedures: Surgery Specimen Level IV HEADER OPERATION: Bilateral laparoscopic salpingectomy PRE-OP DIAGNOSIS: Sterilization request TISSUE SUBMITTED: Bilateral fallopian tubes MICROSCOPIC DIAGNOSIS Bilateral fallopian tubes, salpingectomy: Bilateral fallopian tubes including fimbrial ends with focal area of endometriosis. SJ:liz 12/05/18 COMMENT Case has been reviewed in consultation with Dr. Miles who concurs with the above diagnosis. IDC:AM MICROSCOPIC DESCRIPTION Slides are reviewed. GROSS DESCRIPTION Received is one container labeled with the patient's name and designated bilateral fallopian tubes. The specimen consists of bilateral fallopian tubes. The fallopian tubes are not identified as right or left. One fallopian tube measures 5.5 cm in length and 0.5 cm in diameter. The second fallopian tube measures 4 cm in length and 1 cm in diameter. The fimbrial end is noted in both fallopian tubes. Sections do not reveal any mass lesion. Also present in the container are detached pieces of multiple portion of fallopian tube measuring in aggregate 2 x 1.5 x 0.5 cm. Sections of both fallopian tubes reveal unremarkable cut surfaces. School Social Worker sections are submitted in three cassettes as follows: 1 - one fallopian tube, 2??second fallopian tissue, 3 - detached pieces of tissue, entirely submitted. / SJ:liz 12/04/18 TC:5 CPT: 36369 x2
[2018-12-04] MEDS: Bupiv/Epi 0.5% Mpf 30 ML Vial INTRAARTIC (07:35)
--- NOTE | 2018-12-04 07:54 | PCM.OPRPT ---
Report of Operation Date of Procedure: 12/04/18 Pre-Operative Diagnosis: sterilization request, 6 wk pp. Enlarged fibroid uterus Post-Operative Diagnosis: Same Surgery/Procedure Performed:: Laparoscopic Bilateral salpingectomy Description of Surgical Findings:: Findings: There is a normal-appearing [anteverted] uterus. Fallopian tubes and ovaries are within normal limits. Gross inspection of the bowel, omentum, liver edge are also within normal limits. Photos were taken of the uterus and ovaries after the bilateral partial salpingectomy, and of the right upper quadrant/liver edge. Type of Anesthesia:: General Specimen's removed: Bilateral fallopian tubes Estimated Blood Loss (mL): 50 Fluids Replaced: LR Description of Procedure: Narrative account: After the risks, benefits, alternatives of the procedure have been reviewed with the patient, informed consent was obtained. The patient was taken to the operating room with an IV running. She was positioned on the operating table in dorsal supine position, where she was given general anesthesia. Once asleep she was repositioned into the dorsal lithotomy position and prepped and draped in the usual sterile fashion. A red Knott catheter was used to drain the bladder prior to initiating the case. A [employer] uterins manipulator was placed into the cervix to allow manipulation of the cervix and uterus during the case. Attention was then turned to the anterior abdominal wall where 0.5% percent Marcaine with epinephrine was instilled at the suprapubic and infraumbilical skin and at a point midway between the two, in the midline. Skin incisions were then created in the midline at the suprapubic skin, at the infraumbilical skin, and at a point in the midline midway between the two. While maintaining upward traction of the anterior abdominal wall, a Veress needle was inserted through the umbilical incision into the peritoneal cavity. There was free drop of saline, low opening pressure and free flow of CO2 noted. Once the intra-abdominal pressure had reached 12 mmHg the Veress needle was removed and a bladeless 5 mm trocar was inserted through the infraumbilical skin incision into the peritoneal cavity. Correct placement was confirmed using the scope. Under direct visualization then with the patient in Trendelenburg position, a bladeless 5 mm trocar was inserted in through the suprapubic skin incision into the peritoneal cavity and at the mid lower abdominal incision midway between the infraumbilical and suprapubic trochars. The uterus was anteverted and both ovaries and fallopian tubes were within normal limits. The right fallopian tube was grasped and retracted medially and using a LigaSure device the right fallopian tube was excised from the ovary and mesosalpinx to the level of the uterine fundus. Excellent hemostasis was noted at the excision site. The right fallopian tube was brought through the suprapubic trocar and set aside for later pathology review. In a similar manner the left fallopian tube was grasped and retracted medially and the fallopian tube was excised and removed from the abdominal cavity through the suprapubic trocar. The fallopian tubes were sent to pathology. Excellent hemostasis was noted by visualization of the pelvis, ovaries, and remaining mesosalpinx. Photos were taken of the uterus and bilateral remaining ovaries and of the right upper quadrant and liver edge. At this point the procedure was terminated. The pneumoperitoneum was reduced and the instruments and trocars were removed from the anterior abdominal wall skin. The skin incisions were closed with 4-0 Monocryl in a subcuticular fashion Dermabond and op sites were applied to the skin. The [employer] uterins manipulator was then removed from the vagina. The patient was returned to dorsal supine position. She was awakened from general anesthesia. She was transferred to the recovery room bed in stable condition after tolerating the procedure well. Sponge, lap, needle and instrument counts were correct x two. Medications given preop and intra-op included: 10 cc of half percent Marcaine with epinephrine used as a subcutaneous block, and Toradol 30 mg IV x1. For a complete listing of medications given preop and intra-op please see the anesthesia record.
== END 2018-12-04 10:37 | disposition home or self-care (01) ==
LOC: SDC 05:58 → AC 05:58
PROVIDERS: Anesthesiology; Referring Provider Obstetrics & Gynecology; Visit Provider Obstetrics & Gynecology
PROC: (CPT 58661; principal; 2018-12-04 07:15)
DX: Z30.2 Encounter for sterilization (principal); N80.2 Endometriosis of fallopian tube; D25.9 Leiomyoma of uterus, unspecified; Z82.49 Family history of ischemic heart disease and other diseases of the circulatory system; Z90.49 Acquired absence of other specified parts of digestive tract
CPT/HCPCS: 00840; 58661; 36415; 81025; 85027; 88302; 88305; J7120; J2405

== ENCOUNTER 2019-01-12 06:26 | Day surgery (SDC) | payer OTHER, SELFPAY ==
[2018-12-04 06:26] VITALS: BMI 31.4
[2019-01-07 13:29] LABS: Hematocrit 36.1 % (37-47); Hemoglobin 10.7 g/dL (12.0-15.0); Mean Corp Hgb Conc 29.6 g/dL (32-36); Mean Corpuscular Hgb 24.3 pg (27.0-32.0); Mean Platelet Vol. 11.1 fl (6.2-12.0); Platelet Count 324 K/mm3 (150-450); RBC Distribution Width SD 54.4 fl (35.1-43.9); White Blood Count 7.1 K/mm3 (4.4-11.0)
[2019-01-07 13:52] LABS: Partial Thromboplast Time 30.7 Seconds (24.1-36.2); Prothrombin Time (Protime)PT. 13.3 SECONDS (11.7-14.9)
[2019-01-07 13:59] LABS: Creatinine, Serum 0.75 mg/dL (0.55-1.02); EST Glomerular Filtration Rate 92 mL/min (>60); Est Glom Filt Rate - Afr Amer 111 mL/min (>60)
--- NOTE | 2019-01-11 14:54 | HP.PCM_ITS ---
History and Physical Date of Admission: 01/12/19
--- NOTE | 2019-01-11 14:54 | PCM.HP.BLA ---
History and Physical Date of Admission: 01/12/19
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
[2019-01-12] VITALS (12 sets, daily range): BP systolic 103–126; BP diastolic 62–94; PULSE 76–111; RESP 16–18; TEMP 36.4–37.2; O2SAT 92–100; BMI 30.7
--- NOTE | 2019-01-12 | UT_PTH ---
PATIENT: JIM BRADFORD LOC: [facility] [place] U#:[id number] AGE/SX: 38/F ROOM: RE01/12/[address]: Dr. Judah Yoon MD : 1980 BED: DIS: 01/13/2019 SPEC #: [id number] RECD: 01/12/19 14:39 STATUS: JANET GUALBERTO #: [id number] LYNNE: 01/12/19 00:[address]: Judah Yoon DEPT: SURGICAL PATHOLOGY RECD BY: Charlie Cormier ENTERED: 01/12/19 14:59 SP TYPE: UTERUS OTHR DR: Out of [facility] Doctor Tissues: Uterus, NOS Procedures: Surgery Specimen Level V HEADER OPERATION: Laparoscopic robotic hysterectomy PRE-OP DIAGNOSIS: Excessive bleeding in the premenopausal period, leiomyoma of uterus TISSUE SUBMITTED: Uterus MICROSCOPIC DIAGNOSIS Uterus, hysterectomy: Cervix - minimal chronic inflammation. Endometrium - secretory endometrium. Myometrium - adenomyosis, leiomyomas with hyalinization and degenerative change. Proximal right and left fallopian tubes with no pathologic change. AM:liz 01/13/19 MICROSCOPIC DESCRIPTION Slides are reviewed. GROSS DESCRIPTION Received in fixative is one container labeled with the patient's name and designated uterus. The specimen consists of a hysterectomy specimen in multiple pieces consisting of uterus with cervix weighing 220 gm. One of the pieces consisting of cervix measures 5.5 x 2.5 x 2 cm. The ectocervical mucosa is unremarkable. The external os is slit-like in contour. The endocervical canal measures 4 cm in length and the endocervical mucosa is unremarkable without any mass lesion. The largest piece of uterus measures 10 x 7.5 x 6.5 cm. This portion shows the endometrial cavity which measures 6 cm in length and 2 cm in width. The endometrium is unremarkable. The serosal surface is unremarkable. The endometrium measures <0.1 cm in thickness. Sectioning of this piece reveal multiple nodular masses. The largest mass measures 5 cm in greatest dimension. The largest mass also shows yellowish cut surfaces consistent with focal degenerative changes. Also present in the container are multiple smaller pieces of tissue consistent with pieces of uterus. These pieces of uterus measures in aggregate 10 x 9 x 2.5 cm. Sections of these smaller pieces do not reveal additional mass lesions. One of the pieces also appears to be the proximal portion of the fallopian tube measuring 1.5 cm in greatest dimension. One smaller piece is also second portion of fallopian tube. The uninvolved uterine wall measures up to 3.5 cm in thickness. Account Management Specialist sections are submitted in 11 cassettes as follows: 1 - anterior cervix, 36??uterus, 7 & 8 - largest nodular mass, 9 - smaller nodular masses, 10 & 11 - proximal portion of fallopian tube with each cassette containing one fallopian tube. / SD:liz 01/12/19 TC:1 CPT: 60200
[2019-01-12] MEDS: Lactated Ringers 1,000 ML 100 ML IV ×2 (07:31→13:06)
--- NOTE | 2019-01-12 11:50 | PCM.OPRPT ---
Report of Operation Date of Procedure: 01/12/19 Pre-Operative Diagnosis: Menorrhagia, Uterine Fibroids Post-Operative Diagnosis: Menorrhagia, Uterine Fibroids Description of Surgical Findings:: 14 cm uterus with normal-appearing ovaries. Fallopian tubes absent. Approximately a 4 to 5 cm degenerating fibroid cavity in the body of the uterus. quality review specialist: Ralph Barrios Type of Anesthesia:: General - Endotracheal Anesthesiologist: Shukri Campbell Specimen's removed: Uterus Drains: Dang to straight drain Estimated Blood Loss (mL): 100 cc Fluids Replaced: Crystalloid Description of Procedure: Surgeon: Judah Yoon MD, FACOG Indication: This is a 38 year old patient who has been having problems with extremely heavy menses and was noted to have large uterine fibroids at a recent section. Conservative measures have not been helpful. The patient has been counseled regarding the risks, benefits and alternatives of this procedure including the possibility of bleeding, infection, and injury to surrounding structures such as bowel bladder and all questions were answered. She understands that if BSO is needed that she will need to be on HRT for an indefinite period of time. Procedure: Pt taken to the operating room where, after induction of general anesthesia, the patient was prepped and draped in the usual sterile fashion and placed on a non-slip Huggy-u-vac device. Trendelenburg test was satisfactory. Bladder was drained of urine with a Dang catheter which was left in place. Anterior cervix grasped and cervix was dilated to about 3-4 mm. Uterus sounded to 12 cms. 0-Vicryl suture was placed at the 3:00 and 9:00 position of the cervix. A small Advincula Tree Sapper Uterine Manipulator was then placed in the uterus and attention was turned to the laparoscopic portion of the procedure. Ropivocaine 0.5% was injected approximately 2-3 cm superior to the umbilicus and an 8 mm robotic camera port was introduced directly with intraperitoneal placement confirmed with CO2 insufflation. 8 mm robotic side ports were introduced under direct visualization approximately 11 cm lateral and 2 cm inferior to the umbilical port. A 5 mm left upper quadrant port was introduced and airseal insufflation with CO2 was started. The above findings were noted. Robot was docked without difficulty and attention turned to the robotic portion of the procedure. Approximately 30 cc of Ropivicaine was used. Bilateral utero-ovarian ligaments were ligated with 35 marmolejo bipolar coagulation to the level of the round ligament. The posterior aspect of the cervix was identified and then opened for about 1 cm using 25 watt monopolar cautery. Bladder flap was opened and divided to the level of the round ligaments using monopolar cautery. Adhesions were noted between the bladder and anterior uterus during this process. Progressive bites were then ligated on each side of the cervix with 35 marmolejo bipolar cautery to the uterine arteries. The anterior vaginal mucosa was entered and cervix circumscribed with monopolar cautery. Uterus was removed through the vagina in pieces until we were able to get the body of the uterus through the vaginal opening. Vaginal cuff was closed first with 0-Vicryl Janine stitches placed at each angle followed by closure of the mid-cuff with 0-Monocryl V-lock suture in two layers. Pelvis was copiously irrigated with saline and the right ureter was noted to peristalse. Urine was clear. Robot was undocked and trocars were removed with as much gas as possible. Incisions were closed with 4-0 Monocryl subcuticular sutures and incisions covered with steri-strips. The patient tolerated the procedure well and was taken to the recovery room in satisfactory condition. Sponge, instruments and needle counts were all correct. There were no apparent complications of the surgery. Cefotan 2 gms IV was given prior to the procedure. Estimated Blood Loss: Less than 100 cc Specimen to Pathology: Uterus Grafts/Implants Used: None - Complications None - Admit VTE Documentation VTE Present on Admission: Yes VTE Mechan Device Prophylaxis: SCD's VTE Pharm Prophylaxis ordered?: Yes
[2019-01-12] MEDS: Ropivacaine 0.5% 30 ML Vial (11:52)
--- NOTE | 2019-01-12 12:00 | DCINST_ITS ---
Discharge Diet: No Restrictions Discharge Activity: Return to Normal Activity, May Not Drive - while taking narcotic pain medications., May Shower, May Take a Tub Bath May resume sexual activity in: 6-8 weeks Call your doctor if your incision/area has: Continuous Slow Oozing, Sudden Inc reased Bleeding, Increased Pain/ Swelling, Increased Redness, Foul Smelling Discharge Call your doctor if you observe: Fever of 101 or Higher, Inability to urinate, Inability to have a bowel movement, Using more than one pad per hour Allergies/Adverse Reactions: Allergies No Known Allergies Allergy (Verified 01/05/19 09:18) Medications to take at Discharge Docusate Sodium [Colace] 100 mg PO BID PRN PRN #60 cap 01/12/19 Oxycodone [Oxyir] 5 mg PO Q6H PRN PRN 7 Days #20 tablet 01/12/19 The following prescriptions were given: Docusate Sodium [Colace] 100 mg PO BID PRN PRN #60 cap PRN Reason: Constipation Transmission Status: Pending to [facility] Oxycodone [Oxyir] 5 mg PO Q6H PRN PRN 7 Days #20 tablet PRN Reason: Pain Score 6-10/10 Transmission Status: Sent to [facility] Primary Care Physician: KENNEDY DUNLAP [Other] Test Results: Test results from this visit will be discussed in further detail at your follow- up appointment, if applicable. Please Follow Up With: Judah Yoon MD When: 2 to 3 weeks
[2019-01-12] MEDS: Dextrose 5%-Lactated Ringers 1,000 ML 150 ML IV (14:47)
[2019-01-12] MEDS: oxyCODONE 5 MG Tablet PO ×2 (14:48→20:21)
[2019-01-12] MEDS: Ondansetron 4 MG/2 ML Vial IV (14:48)
[2019-01-12] MEDS: Acetaminophen 500 MG Tablet 1000 MG PO (16:25)
[2019-01-12] MEDS: Ketorolac 30 MG/ML Syringe IV ×2 (18:20→23:47)
[2019-01-12] MEDS: Enoxaparin 30 MG/0.3 ML Syringe SC (18:20)
[2019-01-12] MEDS: 0.9% Saline Lock 10 ML Syringe IV (23:47)
[2019-01-13 03:23] VITALS: BP 109/55; PULSE 79; RESP 16; TEMP 37.5; O2SAT 96
[2019-01-13 05:34] LABS: Hematocrit 27.2 % (37-47); Hemoglobin 8.3 g/dL (12.0-15.0); Mean Corp Hgb Conc 30.5 g/dL (32-36); Mean Corpuscular Hgb 24.9 pg (27.0-32.0); Mean Corpuscular Volume 81.4 fL (81-99); Mean Platelet Vol. 10.6 fl (6.2-12.0); Platelet Count 290 K/mm3 (150-450); RBC Distribution Width SD 53.3 fl (35.1-43.9); Red Blood Count 3.34 M/mm3 (4.2-5.4); White Blood Count 12.9 K/mm3 (4.4-11.0)
[2019-01-13 05:53] LABS: Creatinine, Serum 0.78 mg/dL (0.55-1.02); EST Glomerular Filtration Rate 88 mL/min (>60); Est Glom Filt Rate - Afr Amer 107 mL/min (>60); Estimated Creatinine Clearance 84.45 ml/min
[2019-01-13] MEDS: Ketorolac 10 MG Tablet PO (06:33)
[2019-01-13 08:00] VITALS: O2SAT 97
--- NOTE | 2019-01-13 08:49 | PCM.PN.OB ---
Subjective: Patient without complaints. Tolerating diet well. Denies flatus. Dang catheter is out but not yet able to void on own. Minimal vaginal bleeding reported. - Physical Exam Vitals/I&O's: Vital Signs Temp Pulse Resp BP Pulse Ox 99.5 F H 79 16 109/55 L 97 01/13/19 03:23 01/13/19 03:23 01/13/19 03:23 01/13/19 03:23 01/13/19 08:00 Oxygen Flow Rate (L/min) 3 Oxygen Delivery Method Room Air Weight: 179 lb 3.2 oz Body Mass Index (BMI) 30.7 Intake and Output for Last 24 Hours 01/11/19 01/12/19 01/13/19 23:59 23:59 23:59 Intake Total 6255.83 / 6255.83 300 / 300 Output Total 4775 / 4775 350 / 350 Balance 1480.83 / 1480.83 -50 / -50 Comment: Wounds clean dry and intact. Hemoglobin and creatinine okay. Laboratory Results 01/13/19 05:15: WBC 12.9 H, RBC 3.34 L, Hgb 8.3 L, Hct 27.2 L, MCV 81.4, MCH 24.9 L, MCHC 30.5 L, RDW Std Deviation 53.3 H, RDW Coeff of Schuyler 18.0 H, Plt Count 290, MPV 10.6 01/13/19 05:15: Creatinine 0.78, Estim Creat Clear Calc 84.45, Est GFR (MDRD) Af Amer 107, Est GFR (MDRD) Non-Af 88 Current Medications Acetaminophen (Tylenol) 1,000 mg PO Q8H PRN PRN PRN Reason: Pain Score 1-3/10 or Fever Last Admin: 01/12/19 16:25 Dose: 1,000 mg Documented by: Docusate Sodium (Colace) 100 mg PO BID PRN PRN PRN Reason: Constipation Hydromorphone HCl (Dilaudid Inj) 0.5 mg IV Q3H PRN PRN PRN Reason: Pain Score 4-10/10 Ketorolac Tromethamine (Toradol) 10 mg PO Q6 ZOYA Stop: 01/18/19 01:20 Last Admin: 01/13/19 06:33 Dose: 10 mg Documented by: Ondansetron HCl (Zofran) 4 mg IV Q4H PRN PRN PRN Reason: NAUSEA Last Admin: 01/12/19 14:48 Dose: 4 mg Documented by: Oxycodone HCl (Oxyir) 5 mg PO Q4H PRN PRN PRN Reason: Pain Score 4-10/10 Last Admin: 01/12/19 20:21 Dose: 5 mg Documented by: Simethicone (Mylicon) 80 mg PO PCHS ZOYA Last Admin: 01/12/19 21:34 Dose: 80 mg Documented by: Sodium Chloride () 10 - 40 ml IV UD PRN PRN Reason: SALINE FLUSH Last Admin: 01/12/19 23:47 Dose: 10 ml Documented by: Medical Necessity - Tobacco Use Smoking Status: Never smoker Tobacco Use: Non-smoker Assessment/Plan All Active Problems (This Medical Record has been edited. Action required.) Edema of left lower extremity (Acute) Doing well postoperative day #1 status post robotic assisted vaginal hysterectomy. Will release to home when able to void on own.
[2019-01-13 09:48] VITALS: BP 105/66; PULSE 65; RESP 16; TEMP 36.6; O2SAT 99
[2019-01-13] MEDS: oxyCODONE 5 MG Tablet PO (10:12)
== END 2019-01-13 08:49 | disposition home or self-care (01) ==
LOC: SDC 06:26 → AC 06:27 → PCU 12:40
PROVIDERS: Referring Provider Obstetrics & Gynecology; Visit Provider Obstetrics & Gynecology
PROC: 0UT94ZZ Resection of Uterus, Percutaneous Endoscopic Approach (ICD-10-PCS; CPT 58550; principal; 2019-01-12 08:10)
DX: N92.0 Excessive and frequent menstruation with regular cycle (principal); D25.9 Leiomyoma of uterus, unspecified; Z79.1 Long term (current) use of non-steroidal anti-inflammatories (NSAID); Z90.49 Acquired absence of other specified parts of digestive tract; N72 Inflammatory disease of cervix uteri; N80.0 Endometriosis of uterus
CPT/HCPCS: 00840; 58550; S2900; 36415; 82565; 85027; 85610; 85730; 86850; 86900; 86901; 88307; 99251; J7120; A4216; G0463; J2405

== ENCOUNTER 2021-09-14 20:21 | Emergency (ER) | payer OTHER, SELFPAY ==
[2021-09-14 20:22] VITALS: BP 152/90; PULSE 128; RESP 18; TEMP 36.4; O2SAT 99; BMI 34.3
--- NOTE | 2021-09-14 21:17 | EDS_ITS ---
HPI History of Present Illness Chief Complaint: Bite Detail of Chief Complaint: Hymenoptera envenomation, multiple stings to e xtremities Informant: patient Onset/Context/Timing Onset: Hours Context: Sudden Onset Timing: Continuous Quality: Itching,. Local swelling Location: Extremities Current Severity: Mild Maximum Severity: Mild Worsened by: Nothing Relieved by: Has taken nothing Associated Symptoms Associated Symptoms: No systemic symptoms Narrative Narrative: Patient is a 41-year-old woman with no signal past medical history who presents after hymenoptera envenomation. She states he was stung multiple times. She denies swelling of her lips, tongue or throat. She denies change in voice. She denies respiratory difficulty. She denies orthostatic symptoms. She denies GI symptoms. She presently complains of itching and swelling at site of envenomation. Prior similar symptoms: No Recent Illness/Hospitalization: No PFSH [facility] Medical History history of ankle surgery history of wrist surgery Home Medications docusate sodium 100 mg capsule 100 mg PO BID PRN PRN Constipation #60 caps 01/12/19 [Rx Last Taken Unknown] Allergy/AdvReac Type Severity Reaction Status Date / Time No Known Allergies Allergy Verified 09/14/21 20:24 Social History (Updated 09/14/21 @ 21:[address] Raleigh Drew MD) household members: spouse Smoking Status: Never smoker alcohol intake: never ROS ROS ED Constitutional Constitutional ED: Denies chills, fever(s), subjective, sweats or weight loss Eyes Eyes: Denies blurry vision, change in vision or diplopia ENT ENT ED: Denies ear pain, rhinorrhea or sore throat Cardiovascular Cardiovascular: Denies chest pain or palpitations Respiratory/Chest Respiratory/Chest: Denies cough, dyspnea or dyspnea on exertion Gastrointestinal Gastrointestinal: Denies diarrhea, nausea or vomiting Musculoskeletal Musculoskeletal: Denies arthralgias, back pain, myalgias or neck pain Integumentary Reports rash; Denies abscess Neurologic Neurologic: Denies paresthesias or weakness Psychiatric Psychiatric: Denies anxiety Allergic/Immunologic Allergic/Immunologic ED: Denies mouth swelling, tongue swelling or urticaria EXAM Physical Exam Const Vital Signs: 09/14/21 20:22 Temperature 97.6 F L Temperature Source Temporal Pulse Rate 128 H Respiratory Rate 18 Blood Pressure 152/90 H Blood Pressure Mean 110 Pulse Ox 99 Oxygen Delivery Method Room Air Positive well nourished, well developed and obese General Appearance ED: well developed and NAD; Negative for cyanotic, diaphoretic or pallor Nutritional Appearance: obese HEENT Reports moist mucous membranes HEENT Narrative: There is no evidence of angioedema. Posterior pharynx unremarkable. Negative for trauma or tenderness Eyes PERRL and EOMs intact bilaterally General Eye ED: Negative for pale conjunctiva or scleral icterus Neck no lymphadenopathy, supple and no JVD Neck Narrative: Trachea is midline. There is no in-store expiratory stridor. Resp normal respiratory effort and clear to auscultation bilaterally Cardio regular rate, regular rhythm, S1 normal heart sound, S2 normal heart sound and no murmurs GI normal to inspection, nondistended, normoactive bowel sounds Inspection: abdominal distention Palpation: soft Back/Spine no CVA tenderness Extremity Negative for normal to inspection Extremity Narrative: Patient has areas of erythema with soft tissue swelling due to envenomation. Neuro oriented x3, CN's II-XII intact bilaterally and no sensory deficits noted Sensorium / Orientation: alert Motor Exam: strength 5/5 throughout Psych mental status grossly normal Skin Skin Narrative: Local allergic reaction General Skin Exam: elasticity normal; Negative for jaundice or pallor MDM MDM MDM Narrative Medical decision making narrative: Patient was treated with H1 H2 jalen. She was observed since presently she only has local symptoms. Patient was reassessed at 2119. She has no systemic symptoms or findings. She was discharged to home Discharge Plan Triage Chief Complaint: Bite ED Provider: Raleigh Drew Dx/Rx/DC Orders Clinical Impression: Yellow jacket sting allergy, Allergic reaction Instructions: Allergy Medicines: Gcae-[id number] Prescriptions: No Action docusate sodium 100 MG capsule 100 mg PO BID PRN PRN (Reason: Constipation) Qty: 60 1RF Primary Care Provider: Erendira Rosales Referrals: Erendira Rosales DO [Primary Care Provider] - As Needed Activity Restrictions/Additional Instructions: 1. Take 1 Benadryl capsule every 6 hours for the next 2 days 2. Take 120 mg of Pepcid [id number] pill twice a day for the next 2 days 3. If you experience swelling of your lip, tongue or throat return to the emergency department. 4. If you are wheezing or have significant respiratory discomfort return to the emergency department 5. If you develop hives return to the emergency department Disposition Disposition: Home, Self Care
[2021-09-14 21:24] VITALS: RESP 16
[2021-09-14] MEDS: Famotidine 20 MG Tablet PO (21:29)
[2021-09-14] MEDS: DiphenhydrAMINE 25 MG Capsule PO (21:29)
== END 2021-09-14 21:32 | disposition home or self-care (01) ==
PROVIDERS: Emergency Provider Emergency Medicine; PCP Family Medicine; Visit Provider Emergency Medicine
DX: T63.441A Toxic effect of venom of bees, accidental (unintentional), initial encounter (principal); Y93.9 Activity, unspecified; Y99.9 Unspecified external cause status; Y92.9 Unspecified place or not applicable
CPT/HCPCS: 99283

== ENCOUNTER → 2022-05-30 | Outpatient (CLI) | payer OTHER, SELFPAY ==
--- NOTE | 2022-05-30 16:44 | RAD_ITS ---
INDICATION: left foot pain EXAMINATION/TECHNIQUE: X-RAY - LEFT XR Foot Min 3 Views COMPARISON: None. FINDINGS: SOFT TISSUES: No soft tissue swelling or gas. No radiopaque foreign body. BONES/JOINTS: No acute fracture or subluxation.. Normal alignment. Preservation of the joint space.. No sclerotic or destructive changes observed. RAD/Foot min 3 Views IMPRESSION: No acute bony injury. Electronically Signed: Akhil Oliveira DO at 17:10 EDT ,
== END | disposition home or self-care (01) ==
LOC: MTRAD 16:34
PROVIDERS: PCP Family Medicine; Referring Provider Physician Assistant Surgical; Visit Provider Physician Assistant Surgical
DX: M79.672 Pain in left foot (principal)
CPT/HCPCS: 73630